=== PATIENT | male | born 1940 | race Caucasian/White ===

== ENCOUNTER 2023-08-11 18:35 | Observation (INO) | payer MEDICARE, BC, SELFPAY ==
[2023-08-11] VITALS (14 sets, daily range): BP systolic 166–199; BP diastolic 63–77; PULSE 95–102; BMI 22.1
--- NOTE | 2023-08-11 15:08 | ED.GENMED ---
History of Present Illness
General
Chief Complaint: Change in Mental Status
Source: patient
Exam Limitations: none
Time Seen by Provider: 08/11/23 14:52
Travel History
Have you had any contact with someone who has COVID-19?: No
Do you have any symptoms of coronavirus? Fever > 100 degrees, chills, cough, shortness of breath, sore throat, loss of taste or smell, muscle aches, or headache?: No
History of Present Illness
History of Present Illness:
83-year-old male with history of liver cancer currently not being treated presents via EMS from home where he lives with his . He was outside [place] and his looked out the window and saw him on his back on the ground. Patient does
not recall what happened. He denies any current chest pain headache shortness of breath. About 1 year ago he had a similar episode where he fell and was taken to [facility]. That time he was anticoagulated. Decision was made at the time
and he is at [facility] to place him on hospice. He has since graduated from hospice as he was gaining weight and his appetite returned. Currently does not receive any treatment for his cancer. He states that recently his appetite has been good.
Past History
Past History
ED Past Medical History: HTN, Other (Type I aortic dissection) and Other (Prior GI bleed, prostate cancer)
ED Past Surgical History: None and Cardiac (Type I aortic dissection repair June 2009, Dr. Valencia)
Social History
Tobacco: Non-smoker
Alcohol: Daily
Drug: None
Personal:
Living: with family
Family History
Family History: Unable to obtain
Phy Exam
Physical Exam
Physical Exam:
General: Cachectic appearing male no acute respiratory distress
HEENT: Normocephalic atraumatic
Heart: Regular rate and rhythm no murmurs
Lungs: Clear to auscultation bilaterally no wheezing
Neurologic exam: Alert and oriented x 3 no facial asymmetry or slurred speech no drift on exam finger-nose intact.
Course
Orders/Labs/Results
Orders:
Orders
08/11/23 14:50
Electrocardiogram (*1) Urgent
Reason for Study: Syncope
EKG- Treatment ONCE
08/11/23 15:05
CT Head W/o Iv Contrast Urgent
Comment:
Reason For Exam: fall
08/11/23 15:06
Ammonia Urgent
Complete Blood Count/With Diff Urgent
Comprehensive Metabolic Panel Urgent
Troponin I Urgent
08/11/23 15:07
Urinalysis Reflex To Culture Urgent
08/11/23 15:19
Orthostatic VS- Treatment ONCE
08/11/23 16:08
0.9% Sodium Chloride 1000 ml [Nss] 1,000 ml IV BOLUS
Abnormal Lab Results
08/11/23
15:06
WBC 10.9 H 10^3/uL
(4.8-10.8)
RBC 2.59 L 10^6/uL
(4.70-6.10)
Hgb 7.3 L g/dL
(13.0-18.0)
Hct 22.0 L %
(39.0-52.0)
RDW 15.4 H %
(11.5-14.5)
Abs Immat Gran (auto) 0.1 H 10^3/uL
(0-0.05)
Absolute Neuts (auto) 8.2 H 10^3/uL
(1.4-6.5)
Absolute Lymphs (auto) 0.7 L 10^3/uL
(1.2-3.4)
Absolute Monos (auto) 1.1 H 10^3/uL
(0.1-0.6)
Immature Gran % 0.6 H %
(0-0.5)
Neutrophils % 75.7 H %
(42.2-75.2)
Lymphocytes % 6.8 L %
(20.5-51.1)
Monocytes % 9.9 H %
(1.7-9.3)
Eosinophils % 6.5 H %
(0-6)
BUN 57 H mg/dl
(9-20)
Creatinine 4.4 H* mg/dL
(0.7-1.3)
Glucose 112 H mg/dl
(70-99)
Alkaline Phosphatase 144 H U/L
(38-126)
08/11/23 15:06
08/11/23 15:06
Vital Signs
Initial and Last Documented VS:
Initial Vital Signs
BP
179/67
08/11/23 14:47
Last Documented Vital Signs
Temp Pulse Resp BP Pulse Ox
98.6 F 54 20 180/68 99
08/11/23 15:00 08/11/23 16:45 08/11/23 16:45 08/11/23 16:00 08/11/23 16:45
MDM/Problems Addressed
Differential Diagnosis Includes:
Fall unclear etiology. Question possible syncope versus mechanical fall versus anemia
CT of the head pending will check labs.
*Critical Care Note
Total Time (30-74mins, 75-104mins- exclusive of procedures): Not Applicable
Update Note
Update Note:
Patient has acute on chronic anemia with hemoglobin 7.3 and acute on chronic kidney disease now with a creatinine of 4.4. Looks dry on exam potentially prerenal. Patient after fall that was unwitnessed and does not recall. Discussed with
emergency room attending. Keep in hospital
ED Attending Note
-
Portions of this chart may have been created with voice recognition software.� Occasional wrong word or��sound alike� substitutions may have occurred due to the inherent limitations of voice recognition software.
Discharge Plan
Departure
Patient Disposition: Admit
Date of Disposition: 08/11/23
Time of Disposition: 17:14
Admit to: Telemetry
Presentation/result/management discussed w/ accepting MD/DO: Hospitalist
Discharge Problem:
ANITHA (acute kidney injury), Anemia
Prescriptions:
No Action
aspirin 81 MG tablet,delayed release (DR/EC)
81 mg PO DAILY
amlodipine 10 MG tablet
10 mg PO QPM
omega 8-ywv-htn-fish oil 1 EACH capsule
1 cap PO DAILY
ascorbic acid (vitamin C) [Vitamin C] 500 MG tablet
1,000 mg PO DAILY
atorvastatin 20 MG tablet
20 mg PO DAILY
Ca-D3-mag tm-dizy-anh-zahra-bor [Calcium 600-D3 Plus (mag-zinc)] 1 EACH tablet
1 ea PO BID
metoprolol succinate 100 MG tablet extended release 24 hr
100 mg PO DAILY
Referrals:
eLwis Fuentes MD [Family Provider] -
Interventions
Interventions:
*Risk Screen - Suicide Last Done: 08/11/23 15:04
*General Assessment Last Done: 08/11/23 15:04
*Neglect/Abuse Screening Last Done: 08/11/23 15:04
*ED COVID-19 Vaccine History Last Done: 08/11/23 15:04
ED- Neurological Assessment Last Done: 08/11/23 15:11
ED- Cardiac Assessment Last Done: 08/11/23 15:11
[2023-08-11 15:23] LABS: % Basophils 0.5 % (0-2); % Eosinophils 6.5 % (0-6); % Immature Granulocytes 0.6 % (0-0.5); % Lymphocytes 6.8 % (20.5-51.1); % Monocytes 9.9 % (1.7-9.3); % Neutrophils 75.7 % (42.2-75.2); Absolute Basophils 0.1 10^3/uL (0-0.2); Absolute Eosinophils 0.7 10^3/uL (0-0.7); Absolute Immature Granulocytes 0.1 10^3/uL (0-0.05); Absolute Lymphocytes 0.7 10^3/uL (1.2-3.4); Absolute Monocytes 1.1 10^3/uL (0.1-0.6); Absolute Neutrophils 8.2 10^3/uL (1.4-6.5); Hemoglobin 7.3 g/dL (13.0-18.0); Mean Corp Hgb Conc. 33.2 g/dL (33.0-37.0); Mean Corpuscular Hgb 28.2 pg (27.0-31.0); Mean Corpuscular Volume 84.9 fL (80.0-94.0); Mean Platelet Volume 9.6 fL (7.4-10.4); Nucleated Red Blood Cells % 0 % (-); Platelet Count 194 10^3/uL (130-400); Red Blood Cell Count 2.59 10^6/uL (4.70-6.10); Red Cell Dist. Width 15.4 % (11.5-14.5); White Blood Cell Count 10.9 10^3/uL (4.8-10.8)
[2023-08-11 15:36] LABS: ALT (SGPT) 20 U/L (0-50); AST (SGOT) 42 U/L (17-59); Albumin 4.2 g/dl (3.5-5.0); Alkaline Phosphatase 144 U/L (38-126); Blood Urea Nitrogen 57 mg/dl (9-20); Calcium 9.2 mg/dl (8.4-10.2); Carbon Dioxide 23 mmol/L (22-30); Chloride 101 mmol/L (98-107); Estimated Creatinine Clearance 12 ml/min; Glucose 112 mg/dl (70-99); Potassium 4.8 mmol/L (3.5-5.1); Sodium 137 mmol/L (135-145); Total Bilirubin 0.7 mg/dl (0.2-1.3); Total Protein 7.3 g/dl (6.3-8.2); eGFR 12.78
[2023-08-11] MEDS: NSS 1000 IV ×2 (16:11→20:23)
--- NOTE | 2023-08-11 17:30 | HPS.HSE ---
Addendum entered and electronically signed by Bin Hernandez MD 08/11/23 18:36:
I saw and examined the patient.
The [employer] or PA's note was reviewed and I agree with the note.
Comment:
Patient 83 years old male history of rectal carcinoma with liver mets, prostate cancer, AAA, hypertension, hyperlipidemia, CKD, presented to the hospital syncope event. Patient does not recall all details but he tells me he had lunch, he went to
chicken picker the leaves at his backyard and next thing he remembers he was on the grass. He denies chest pain or shortness of breath. He denies seizure-like activity. He denies fevers or chills. He has been in hospice last year then transferred to
palliative care this year. He does state that he does not drink much. Labs remarkable for WBC 10.9, hemoglobin 7.3, creatinine 4.4. He was referred to hospitalist for further evaluation.
Physical exam:
General: Acutely ill
HEENT: Port in right chest no signs of infection. Normocephalic, Atraumatic and Dry Mucous Membranes
Respiratory: Clear to Auscultation; Negative Wheezes, Rales or Rhonchi
Cardiac: Regular Rhythm and S1/S2
GI: Soft, Nontender and Nondistended
Musculoskeletal: No Clubbing, No Cyanosis and No Edema
Neuro: Awake, Alert and Oriented, cognitive deficits present.
Psych: Calm
A/P:
Syncope--> cardiac monitoring, gentle IV fluids, check orthostasis, monitor hemoglobin, transfuse with blood if hemoglobin less than 7, PT OT eval, x-ray of his right shoulder. Will give further recommendations based on his clinical course.
Original Note:
Family Physician
-
Family Physician: Lewis Fuentes
Chief Complaint
-
syncope
History of Present Illness
83-year-old male who was reportedly outside raking leaves today when his saw him lying on his back on the ground. The patient does not recall falling or how he wound up on the ground. Reportedly EMS said that he had taken his shoes off and
they were sitting perfectly lined up next to him when they arrived. The patient does not recall any prodrome of the events. He states he does have poor memory recall. He does recall having a syncope episode July 2022 was seen at [facility] and
at that time did decided to go on hospice and stop chemotherapy for his stage IIIb rectal CA with mets to liver. He denies headache, chest pain, palpitations, shortness of breath, cough, abdominal pain, nausea, vomiting, diarrhea, black stools,
hematuria. He has past medical history of stage IIIb rectal carcinoma with mets to liver prior chemotherapy, HTN, CKD, chronic anemia Hx GI bleed, GERD prostate cancer, type I aortic dissection with repair June 2009
Medical History
Past Medical History
Past Medical History: Reports Other
Additional Past Medical History:
Chronic memory impairment
Stage IIIb rectal carcinoma with mets to liver prior chemotherapy
HTN,
CKD 3B�4,
chronic anemia
Hx GI bleed
prostate cancer
type I aortic dissection with repair June 2009
Past Surgical History: Reports Other
Additional Past Surgical History:
Port right upper chest wall
type I aortic dissection with repair June 2009
Social History
Tobacco: Former Smoker (quit 1964)
Alcohol: None
Drug: None
Personal:
Living: With Family
Employment: Retired
Family History
Family History: Not pertinent
Allergies / Home Medications
Allergies reflects when Allergies were last updated in [facility].
Home Medications with original date entered in [facility]
Allergy/Medication List:
Allergies
Allergy/AdvReac Type Severity Reaction Status Date / Time
No Known Drug Allergies Allergy Unknown Verified 08/11/23 14:51
Home Medications
omega 9-zvs-jrx-fish oil 250 mg-500 mg-1,000 mg capsule 1 cap PO DAILY High cholesterol 09/21/15
ascorbic acid (vitamin C) 500 mg tablet (Vitamin C) 500 mg PO DAILY Supplement 05/31/20
metoprolol succinate 100 mg tablet,extended release 24 hr 100 mg PO DAILY Heart disease/condition 07/05/21
acetaminophen 500 mg tablet 1,000 mg PO DAILY 08/11/23
amlodipine 2.5 mg tablet 2.5 mg PO DAILY 08/11/23
calcium carbonate 333 mg-magnesium oxide 133 mg-zinc sulf 5 mg tablet 1 tab PO DAILY 08/11/23
omeprazole 20 mg capsule,delayed release 20 mg PO DAILY 08/11/23
Review of Systems
-
History Source: Patient and Ambulance Crew
A 12 point ROS was completed and negative except as noted: Yes
Constitutional: Denies Fever or Chills
EENT: Reports Other (Syncope); Denies Sore Throat or Runny Nose
Respiratory: Denies Cough or Trouble Breathing
Cardiac: Reports Syncope; Denies Chest Pain, Diaphoresis or Palpitations
Abdomen/GI: Denies Abdominal Pain, Nausea, Vomiting, Diarrhea, Constipated, Bloody Stools or Black Stools
: Denies Dysuria, Frequency, Flank Pain, Incontinence, Difficulty Voiding, Urgency or Bleeding
Musculoskeletal: Reports Joint Pain (Right shoulder, right humerus) and Other (Chronic limited range of motion bilateral shoulders to elbow level since chemo); Denies Joint Swelling or Edema
Skin: Denies Itching or Rash
Neurological: Denies Dizzy, Headache or Weakness
Endocrine: Reports No Symptoms
Hematologic/Lymphatic: Reports No Symptoms
Psych: Reports Calm
Physical Exam
Vital Signs
Vital Signs
Temp Pulse Resp BP Pulse Ox
98.6 F 54 20 180/68 99
08/11/23 15:00 08/11/23 16:45 08/11/23 16:45 08/11/23 16:00 08/11/23 16:45
Physical Exam
General: No Pain, Fever or Chills
HEENT: NormoCephalic, Anicteric, Moist mucous membranes, PERRLA, [place] Conjunctivae, No Ptosis and Neck Nontender
Respiratory: Clear; No Wheezes, Rales or Rhonchi
Cardiac: S1/S2 and Regular Rhythm
Breast: Deferred by me
GI: Soft, Non Tender, Non Distended, Normal Bowel Sounds and No Hepatosplenomegaly
Rectal: Deferred by Provider
Genito-urinary: Deferred by me
Musculoskeletal: No Clubbing, No Cyanosis, No Edema and Other (Chronic limited range of motion bilateral shoulders to elbow level since chemo)
Skin: Warm and Dry
Neuro: Awake, Alert, Oriented (To name, place, but not recent events today), No Sensory Deficits and Other (Chronic limited range of motion bilateral shoulders to elbow level since chemo); No Slurred Speech, Facial Droop or Tremors
Psych: Calm
Laboratory Results
-
08/11/23 15:06
08/11/23 15:06
Laboratory Results
Total Bilirubin 0.7 mg/dl (0.2-1.3) 08/11/23 15:06
AST 42 U/L (17-59) 08/11/23 15:06
ALT 20 U/L (0-50) 08/11/23 15:06
Alkaline Phosphatase 144 U/L (38-126) H 08/11/23 15:06
Troponin I 0.020 ng/ml 08/11/23 15:06
Impression/Plan
-
Impression/plan:
OBS telemetry
#Syncope unclear likely multifactorial, dehydration, anemia
-Check orthostatics
-IV NSS
-Troponin 0.020 will trend
- pt/Ot / case mgmt consult
EKG sinus rhythm with first-degree AV block 61 bpm, QTc [address] changes anterior leads T wave abnormality inferiorly
Ct HEad: No acute intracranial abnormalities.
Findings again seen compatible with diffuse cortical atrophy with mild nonspecific white matter changes as described above.
#Unwitnessed fall, right shoulder pain
-X-ray shoulder and humerus
tylenol prn pain
#ANITHA on CKD 3B�4
Creat 4.4 > 3.1 on 07/10/2022
-IV NSS, follow BMP
#Acute on chronic anemia
Hgb 7.3 was 9 in June and 8.1 on 07/10/2022
-Type and screen, obtain blood consent
-Iron panel, B12, folate
#Stage IIIb rectal colon cancer with hepatic metastases
-History of chemotherapy induced diarrhea 2021
stopped chemo jul 2022 went on hospice since then
#GERD
#Hx GI bleed
-Continue omeprazole 20 mg daily
#HTN�benign
180/
-Check orthostatic vitals
-Continue metoprolol 100 mg daily, amlodipine 2.5 mg daily
#Hx prostate cancer
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
DVT prophylaxis
scd's
DNR
[2023-08-11 18:22] LABS: Urine Albumin 2+ (Neg - Trace); Urine Bilirubin Negative (Negative); Urine Character Clear (Clear); Urine Color Yellow; Urine Glucose Negative (Negative); Urine Ketone Negative (Negative); Urine Leukocyte Negative (Negative); Urine Nitrite Negative (Negative); Urine Occult Blood 3+ (Negative); Urine Urobilinogen Negative (Neg - 1+)
[2023-08-11 18:25] LABS: Total Iron Binding Capacity 280 ug/dl (261-462)
[2023-08-11 18:33] LABS: Ammonia < 9 umol/L (9-30)
[2023-08-11 18:36] LABS: Urine Bacteria Few (Negative); Urine White Cell 0-2 /HPF (0-5)
[2023-08-11 19:22] LABS: Vitamin B12 299 pg/ml (239-931)
[2023-08-11 21:00] LABS: Troponin I 0.049 ng/ml
[2023-08-12] VITALS (28 sets, daily range): BP systolic 169–217; BP diastolic 55–82; PULSE 58
[2023-08-12 03:49] LABS: Troponin I 0.052 ng/ml
--- NOTE | 2023-08-12 04:26 | W.PN.UPDATE ---
Update Note
Progress Note Update
Patient noted with steadily increasing troponin but is without CP.
[2023-08-12] MEDS: NSS 1000 IV ×2 (06:25→14:27)
[2023-08-12 06:31] LABS: % Basophils 0.6 % (0-2); % Eosinophils 5.4 % (0-6); % Immature Granulocytes 0.3 % (0-0.5); % Monocytes 10.1 % (1.7-9.3); % Neutrophils 69.6 % (42.2-75.2); Absolute Eosinophils 0.4 10^3/uL (0-0.7); Absolute Monocytes 0.7 10^3/uL (0.1-0.6); Absolute Neutrophils 4.9 10^3/uL (1.4-6.5); Mean Corp Hgb Conc. 32.5 g/dL (33.0-37.0); Mean Corpuscular Hgb 27.9 pg (27.0-31.0); Mean Corpuscular Volume 85.8 fL (80.0-94.0); Mean Platelet Volume 10.1 fL (7.4-10.4); Nucleated Red Blood Cells % 0 % (-); Platelet Count 153 10^3/uL (130-400); Red Cell Dist. Width 15.1 % (11.5-14.5); White Blood Cell Count 7.1 10^3/uL (4.8-10.8)
[2023-08-12 06:46] LABS: Blood Urea Nitrogen 52 mg/dl (9-20); Carbon Dioxide 22 mmol/L (22-30); Chloride 105 mmol/L (98-107); Estimated Creatinine Clearance 14 ml/min; Glucose 88 mg/dl (70-99); HDL Cholesterol 44 mg/dl; LDL Cholesterol, Calculated 80 mg/dl; Potassium 4.6 mmol/L (3.5-5.1); Sodium 138 mmol/L (135-145); Total Cholesterol 142 mg/dl (50-199); Triglyceride 90 mg/dl (10-149); Very Low Density Lipoprotein 18 mg/dl (0-30); eGFR 14.77
[2023-08-12 07:08] LABS: Hematocrit 20.6 % (39.0-52.0); Hemoglobin 6.7 g/dL (13.0-18.0)
--- NOTE | 2023-08-12 08:00 | W.PN.HOSP.TC ---
Today's Communication/Plan
-
Plan for blood transfusion. Plan for echocardiogram. PT OT
Assessment / Plan
Assessment / Plan
Physical exam:
General: Chronically ill and No Apparent Distress
HEENT: Normocephalic, Atraumatic and Moist Mucous Membranes
Respiratory: Clear to Auscultation; Negative Wheezes, Rales or Rhonchi
Cardiac: Regular Rhythm and S1/S2
GI: Soft, Nontender and Nondistended
Musculoskeletal: No Clubbing, No Cyanosis and No Edema
Neuro: Awake, Alert and Oriented, no neuro-deficits, cognitive deficits present
Psych: Calm
A/P:
Syncope:
-Continue manager delivery
-Cardiology consult appreciated
-Plan for echocardiogram
-Check orthostatic
-PT OT eval
Worsening anemia:
-Hb 6.7 from 7.3 yesterday
-Likely anemia of chronic disease but proceed to do anemia workup
-Plan for transfusion of 1 unit of blood today (patient consented).
-Recheck hemoglobin in a.m.
-Might benefit from Procrit as outpatient but needs weigh in pro's con's
Elevated troponin:
-Elevated troponin likely due to non-ischemic myocardial injury
-Cardio on board
Hypertensive urgency:
-Given hydralazine 10 mg IV x 1
-Increase Norvasc from 2.5 to 5 mg p.o. daily
-Decrease Toprol-XL from 100 to 50 mg p.o. daily to avoid AV block or significant bradycardia.
ANITHA on CKD:
-IV fluids and blood transfusion
-Cr improving with hydration--> Cr 4.4-->3.9
-Avoid nephrotoxic
-Monitor renal function closely
-Monitor urine output
-Creatinine today
Paroxysmal atrial fibrillation:
-Not on anticoagulant due to past aortic dissection repair and risk of falls
-Continue rate control, beta-blockers
-Continue cardiac monitoring
Rectal carcinoma with metastasis:
-History of sigmoidectomy in the past and chemotherapy
-He has been on hospice and then transition to palliative care
Other medical problems:
Prostate cancer s/p radiation
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
GI bleeding in the past
Hyperlipidemia
GERD
DVT prophylaxis:
-SCD
Code status:
-DNR
Anticipated Discharge: 24 - 48 hours
Subjective/Interval History
-
Date of Service: August 12, 2023
Patient denies any chest pain or shortness of breath today. Denies any melena or hematemesis.
Objective Data
-
Labs:
Laboratory Results
08/12/23 08/12/23
05:45 07:33
WBC 7.1
Hgb 6.7 L*
Hct 20.6 L*
Plt Count 153 D
Sodium 138
Potassium 4.6
Chloride 105
Carbon Dioxide 22
BUN 52 H
Creatinine 3.9 H
Glucose 88
Calcium 9.0
Total Bilirubin Pending
AST Pending
ALT Pending
Alkaline Phosphatase Pending
Vital Signs:
Vital Signs
Temp Pulse Resp BP Pulse Ox
98.6 F 45 20 177/66 97
08/11/23 15:00 08/12/23 05:15 08/12/23 05:15 08/12/23 05:01 08/12/23 05:15
I&O
08/11/23 08/12/23 08/13/23
06:59 06:59 06:59
Intake Total 240 / 240
Output Total 750 / 750
Balance -510 / -510
[2023-08-12 09:04] LABS: ALT (SGPT) 17 U/L (0-50); AST (SGOT) 42 U/L (17-59); Albumin 3.7 g/dl (3.5-5.0); Alkaline Phosphatase 142 U/L (38-126); Direct Bilirubin 0.1 mg/dl (0.0-0.4); Iron 46 ug/dl (49-181); Total Bilirubin 1.1 mg/dl (0.2-1.3); Total Protein 6.6 g/dl (6.3-8.2)
[2023-08-12 09:15] LABS: Percent Saturation 17 % (20-50); Total Iron Binding Capacity 258 ug/dl (261-462)
--- NOTE | 2023-08-12 10:00 | PTCARENOTE ---
Pt's HR SR 49-mid 50's. Notified Dr. Hernandez, clarified if okay to give Metoprolol Succinate ER 100mg. Per Dr. Hernandez, okay to give at this time.
[2023-08-12] MEDS: PROTONIX 40 MG PO (10:08)
[2023-08-12] MEDS: NORVASC 2.5 MG PO (10:08)
[2023-08-12] MEDS: OSCAL 500 + D 500 MG PO (10:08)
[2023-08-12] MEDS: VITAMIN C 500 MG PO (10:11)
[2023-08-12 10:20] LABS: Folate 14.7 ng/ml (2.76-20); Vitamin B12 286 pg/ml (239-931)
[2023-08-12] MEDS: TOPROL XL 100 MG PO (10:24)
--- NOTE | 2023-08-12 10:42 | CON.CAR ---
Addendum entered and electronically signed by Justin Mcarthur DO 08/12/23 16:31:
I saw and examined the patient.
The Shift Superintendent's note was reviewed and I agree with the note.
Comment:
Plan:
HPI: Patient came to [facility] yesterday after an episode of syncope in his yard and cardiology has been consulted for syncope and elevated Troponin. Patient previously followed with Dr. Nieto, but has not seen him in the office since 2015. Since then
patient was diagnosed with rectal carcinoma and had sigmoidectomy and chemotherapy. Then was doing well until a fall at home that was managed as trauma at [facility] approximately 06/2022. Patient says at that time he stood up from the toilet at home and
then passed out and was taken to [facility]. He says at the end of that admission he was initiated on hospice, but recently outlived hospice and was transitioning to palliative care that is supposed to start this week. Patient is using [facility]. Patient says that he was in his usual state of health yesterday and after eating lunch he went to his yard to move leaves, he says that involved bending down and carrying leaves. He says that he was raking leaves and the next thing he
remembers is being brought to the hospital. Patient denies chest pain or SOB. He is HTN in the ER and says that when the nurse was coming from hospice that his BP was generally higher, but he felt well so there were no changes to amlodipine 2.5 mg
daily and Toprol XL 100 mg daily regimen. Now that he is transitioning to Palliative he wants to start seeing Dr. Fuentes in the office again, but does not have an appt yet. He is anemic with Hgb 6.7 this morning. Patient reports a h/o anemia,
presumably related to previous chemotherapy treatment managed by [facility]. He used to take warfarin OAC, but this was stopped due to falls and GIB in 2019. Afib was first seen in 2010 and then he was in SR for years on Multaq and then
Multaq stopped when he could not be anticoagulated, but remained in SR throughout his sigmoidectomy and cancer treatment in .
Plan:
Syncope which may be multifactorial
Monitor on tele for bradycardia or heart block. Toprol reduced for bradycardia.
Check echo to reeval EF
Orthostatic vitals negative. With HTN, increas Norvasc for better bp control.
Transfuse and monitor H/H.
Cont med tx of nonMI troponin. Pt would not want ischemic work up in any case he has stated.
Remains sinus with hx of distant PAFib at time of aortic dissection repair in 2010 and not an anticoagulation candidate in the past due to falls.
Acute on chronic RF. Avoid nephrotoxic agents.
Original Note:
Consultation
Consultation Request
Date/Time Consultation Requested: 08/12/23 at 0802
Date/Time Consultation Performed: 08/12/23 at 0900
Requesting Provider: Dr. Hernandez
Performing Provider: Dr. Mcarthur
Reason for Consultation: Elevated Troponin, syncope
Medical History
-
History of Present Illness:
Patient came to [facility] yesterday after an episode of syncope in his yard and cardiology has been consulted for syncope and elevated Troponin. Patient previously followed with Dr. Nieto, but has not seen him in the office since 2015. Since then
patient was diagnosed with rectal carcinoma and had sigmoidectomy and chemotherapy. Then was doing well until a fall at home that was managed as trauma at [facility] approximately 06/2022. Patient says at that time he stood up from the toilet at home and
then passed out and was taken to [facility]. He says at the end of that admission he was initiated on hospice, but recently outlived hospice and was transitioning to palliative care that is supposed to start this week. Patient is using [facility]. Patient says that he was in his usual state of health yesterday and after eating lunch he went to his yard to move leaves, he says that involved bending down and carrying leaves. He says that he was raking leaves and the next thing he
remembers is being brought to the hospital. Patient denies chest pain or SOB. He is HTN in the ER and says that when the nurse was coming from hospice that his BP was generally higher, but he felt well so there were no changes to amlodipine 2.5 mg
daily and Toprol XL 100 mg daily regimen. Now that he is transitioning to Palliative he wants to start seeing Dr. Fuentes in the office again, but does not have an appt yet. He is anemic with Hgb 6.7 this morning. Patient reports a h/o anemia,
presumably related to previous chemotherapy treatment managed by [facility]. He used to take warfarin OAC, but this was stopped due to falls and GIB in 2019. Afib was first seen in 2010 and then he was in SR for years on Multaq and then
Multaq stopped when he could not be anticoagulated, but remained in SR throughout his sigmoidectomy and cancer treatment in .
PMH:
Chronic anemia
h/o admission for fall and trauma to [facility] 06/2022
initiated on Hospice after that admission and then recently transitioned to Palliative
CKD 4
Prostate CA 2009
radiation
Rectal carcinoma 3b, 05/2020
s/p elective robotic sigmoidectomy 06/08/20
declined systemic therapy, then found to have liver lesions c/w metastatic lesions, treated with FOLFOX and Vectibix 02/2021
History of extensive type A aortic dissection status post repair 06/2010
History of GI bleeding
Paroxysmal atrial fibrillation
Not chronically anticoagulated due to h/o falls
Hypertension
Hyperlipidemia
History of right retinal artery occlusion in 2015
Remote former smoker
Past Medical History
Past Medical History: Other (in HPI)
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
Social History
Tobacco: Former Smoker
Alcohol: Daily
Drug: None
Personal:
Living: With Family
Family History
Family History: CAD and Other (renal failure)
Allergies / Home Medications
Allergy/AdvReac Type Severity Reaction Status Date / Time
No Known Drug Allergies Allergy Unknown Verified 08/11/23 14:51
Medication Instructions Recorded Confirmed Type
omega 2-awf-qkx-fish oil 250 1 cap PO DAILY High cholesterol 09/21/15 08/11/23 History
mg-500 mg-1,000 mg capsule
ascorbic acid (vitamin C) 500 mg 500 mg PO DAILY Supplement 05/31/20 08/11/23 History
tablet (Vitamin C)
metoprolol succinate 100 mg 100 mg PO DAILY Heart 07/05/21 08/11/23 History
tablet,extended release 24 hr disease/condition
acetaminophen 500 mg tablet 1,000 mg PO DAILY 08/11/23 08/11/23 History
amlodipine 2.5 mg tablet 2.5 mg PO DAILY 08/11/23 08/11/23 History
calcium carbonate 333 mg-magnesium 1 tab PO DAILY 08/11/23 08/11/23 History
oxide 133 mg-zinc sulf 5 mg tablet
omeprazole 20 mg capsule,delayed 20 mg PO DAILY 08/11/23 08/11/23 History
release
Review of Systems
-
History Source: Patient
All other systems: Negative unless noted
Physical Exam
Vital Signs
Temp Pulse Resp BP Pulse Ox
98 F 58 14 208/71 100
08/12/23 09:00 08/12/23 10:24 08/12/23 10:08 08/12/23 10:24 08/12/23 10:08
GEN: Frail appearing. NAD. AAOx3
HEENT: EOMI, MMM
LUNGS: CTA B/L, no wheezes/rales
CV: Reg, S1/S2, 1/6 syst LSB
ABD: soft, BS+, NT, ND
EXT: No clubbing, cyanosis, lesions or edema B/L
NEURO: Gross non-focal
SKIN: Warm, dry and pink. No rash
Lab Results
08/12/23 05:45
08/12/23 05:45
Troponin I 0.052 ng/ml H* 08/12/23 03:07
Impression / Plan
-
PCP:
Primary Luncheonette Manager: Dr. Nieto
Impression:
Syncope 08/11/23
Acute on chronic anemia
h/o admission for fall and trauma to [facility] 06/2022
initiated on Hospice after that admission and then recently transitioned to Palliative
ANITHA on CKD 4
Prostate CA 2009
radiation
Rectal carcinoma 3b, 05/2020
s/p elective robotic sigmoidectomy 06/08/20
declined systemic therapy, then found to have liver lesions c/w metastatic lesions, treated with FOLFOX and Vectibix 02/2021
History of extensive type A aortic dissection status post repair 06/2010
History of GI bleeding
Paroxysmal atrial fibrillation
Not chronically anticoagulated due to h/o falls
Hypertension
Hyperlipidemia
History of right retinal artery occlusion in 2015
CKD, stage 2
Remote former smoker
ECHO 2014: EF 55%, mild MR, mild TR
Echo 06/01/20: EF 60-65%, mild MR/AR, mild-mod LVH
Plan:
-Patient came to [facility] yesterday after an episode of syncope in his yard and cardiology has been consulted for syncope and elevated Troponin. Patient previously followed with Dr. Nieto, but has not seen him in the office since 2016. Since then
patient was diagnosed with rectal carcinoma and had sigmoidectomy and chemotherapy. Then was doing well until a fall at home that was managed as trauma at [facility] approximately 06/2022. Patient says at that time he stood up from the toilet at home and
then passed out and was taken to [facility]. He says at the end of that admission he was initiated on hospice, but recently outlived hospice and was transitioning to palliative care that is supposed to start this week. Patient is using [facility]. Patient says that he was in his usual state of health yesterday and after eating lunch he went to his yard to move leaves, he says that involved bending down and carrying leaves. He says that he was raking leaves and the next thing he
remembers is being brought to the hospital. Patient denies chest pain or SOB. He is HTN in the ER and says that when the nurse was coming from hospice that his BP was generally higher, but he felt well so there were no changes to amlodipine 2.5 mg
daily and Toprol XL 100 mg daily regimen. Now that he is transitioning to Palliative he wants to start seeing Dr. Fuentes in the office again, but does not have an appt yet. He is anemic with Hgb 6.7 this morning. Patient reports a h/o anemia,
presumably related to previous chemotherapy treatment managed by [facility]. He used to take warfarin OAC, but this was stopped due to falls and GIB in 2019. Afib was first seen in 2010 and then he was in SR for years on Multaq and then
Multaq stopped when he could not be anticoagulated, but remained in SR throughout his sigmoidectomy and cancer treatment in .
-Fall at home was unwitnessed and he has multiple problems and lab abnormalities. Syncope occurred while bending down and moving a pile of leaves. He has a h/o syncope after standing up from toilet in 06/2022. He is also anemic and HRs have been low
at times without evidence of heart block. His Troponin is trending up as well. Talked with patient about causes of syncope and there is a limit to what he would want in terms of a work-up. He does not want any procedures, but would be willing to
have an echo and make medicine changes if needed.
-Check echo
-Patient is SR with HRs in the 40s-60s. ECG reviewed by me without heart block. He takes Toprol XL 100 mg daily as an outpatient, will reduce to 50 mg daily.
-Increase amlodipine to 5 mg daily.
-Patient is not orthostatic by VS in ER supine BP 171/63 HR 95, sitting BP 175/73 HR 102 and supine BP 199/68 HR 101.
-Patient reports 1 unit of PRBCs is being ordered. He reports that he is now on palliative care and would be willing to have transfusions if needed.
-Troponin was 0.02 initially, but has trended up to 0.052. No ischemic changes on ECG and he denies chest pain. He does not want an ischemic evaluation, specifically does not want stress test or cath which is reasonable. Will manage as a nonischemic
myocardial injury Troponin elevation due to anemia. Trend Troponin to peak.
-ANITHA on CKD, although no labs in the last year and only recently transitioning from hospice to palliative care. Again, he would not want any invasive testing or procedures, but would be agreeable to medications if offered. He last saw nephrology in
2014, perhaps it is best for him to see his PCP and then decide from there if it is appropriate to restart with nephrology.
-Patient with h/o paroxysmal Afib in 2010 at the time of aortic dissection repair, but no documented recurrence. He is in SR. He is not a candidate for OAC due to falls.
--- NOTE | 2023-08-12 12:30 | CM ---
CM met with patient in room. CHRISTOPHER letter given. Patient lives independently with in a two story home. Patient is not currently on services with an VN. Patient was recently discharged from hospice in June 2023 and transitioned to Palliative
Care. Patient does not have a history of SNF. Patient is active with his PCP Dr. Fuentes. Patient uses [facility] in [place].
CM discussed home care options. Patient stated that he feels he does not need home care at this time. Patient endorsed history of multiple falls in the home. Patient was not treated for those falls as he was on hospice. Patient doesn't see the
benefit of home PT for safety. Patient will consider home care if PT makes that recommendation.
[2023-08-12] MEDS: APRESOLINE 10 MG IV ×2 (12:55→18:48)
[2023-08-12 13:08] LABS: Troponin I 0.039 ng/ml
--- NOTE | 2023-08-12 17:25 | PTCARENOTE ---
pt arrived onto 3w unit from the ed in a wheel chair, r.a, tele, and with an accessed port. Pt was ambulatory from wheelchair to standing scale, then to bed. call tiwari is in reach 3w Rn and tech will continue to monitor.
[2023-08-13 02:46] VITALS: BP 192/82
[2023-08-13] MEDS: APRESOLINE 10 MG IV ×2 (02:58→14:37)
[2023-08-13] MEDS: FLUSH (NSS) 2 FLUSH IV (02:59)
--- NOTE | 2023-08-13 03:02 | PTCARENOTE ---
Blood pressure elevated, MAST MAKER made aware, new order provided, see MAR. Will recheck blood pressure.
[2023-08-13 03:50] VITALS: BP 166/73
[2023-08-13 06:06] LABS: Hematocrit 26.2 % (39.0-52.0); Mean Corp Hgb Conc. 33.2 g/dL (33.0-37.0); Mean Corpuscular Hgb 28.4 pg (27.0-31.0); Mean Corpuscular Volume 85.6 fL (80.0-94.0); Mean Platelet Volume 10.4 fL (7.4-10.4); Platelet Count 223 10^3/uL (130-400); Red Blood Cell Count 3.06 10^6/uL (4.70-6.10); Red Cell Dist. Width 15.2 % (11.5-14.5)
[2023-08-13 06:23] LABS: Blood Urea Nitrogen 46 mg/dl (9-20); Carbon Dioxide 18 mmol/L (22-30); Chloride 107 mmol/L (98-107); Estimated Creatinine Clearance 14 ml/min; Glucose 82 mg/dl (70-99); Potassium 4.5 mmol/L (3.5-5.1); Sodium 135 mmol/L (135-145); eGFR 14.77
[2023-08-13 06:25] LABS: Hemoglobin 8.7 g/dL (13.0-18.0)
[2023-08-13 07:00] VITALS: BP 201/80
[2023-08-13] MEDS: NORVASC 5 MG PO ×2 (09:20→14:37)
[2023-08-13] MEDS: PROTONIX 40 MG PO (09:20)
[2023-08-13] MEDS: TOPROL XL 50 MG PO (09:20)
[2023-08-13] MEDS: OSCAL 500 + D 500 MG PO (09:20)
[2023-08-13] MEDS: VITAMIN C 500 MG PO (09:21)
--- NOTE | 2023-08-13 09:46 | W.PN.CARDCBS ---
Today's Communication / Plan
-
We will sign off, please recall as needed
Patient not interested in scheduling outpatient follow up with our office at this time
Would discharge on reduced Toprol dose of 50mg daily
Increase amlodipine to 5mg daily
Impression / Plan
-
PCP:
Primary Airfield Manager: Dr. Nieto
Impression:
Syncope 08/11/23
Acute on chronic anemia
h/o admission for fall and trauma to [facility] 06/2022
initiated on Hospice after that admission and then recently transitioned to Palliative
ANITHA on CKD 4
Prostate CA 2009
radiation
Rectal carcinoma 3b, 05/2020
s/p elective robotic sigmoidectomy 06/08/20
declined systemic therapy, then found to have liver lesions c/w metastatic lesions, treated with FOLFOX and Vectibix 02/2021
History of extensive type A aortic dissection status post repair 06/2010
History of GI bleeding
Paroxysmal atrial fibrillation
Not chronically anticoagulated due to h/o falls
Hypertension
Hyperlipidemia
History of right retinal artery occlusion in 2015
CKD, stage 2
Remote former smoker
ECHO 2014: EF 55%, mild MR, mild TR
Echo 06/01/20: EF 60-65%, mild MR/AR, mild-mod LVH
Patient came to [facility] after an episode of syncope in his yard and cardiology has been consulted for syncope and elevated Troponin. Patient previously followed with Dr. Nieto, but has not seen him in the office since 2016. Since then patient was
diagnosed with rectal carcinoma and had sigmoidectomy and chemotherapy. Then was doing well until a fall at home that was managed as trauma at [facility] approximately 06/2022. Patient says at that time he stood up from the toilet at home and then passed
out and was taken to [facility]. He says at the end of that admission he was initiated on hospice, but recently outlived hospice and was transitioning to palliative care that is supposed to start this week. Patient is using [facility].
Patient says that he was in his usual state of health yesterday and after eating lunch he went to his yard to move leaves, he says that involved bending down and carrying leaves. He says that he was raking leaves and the next thing he remembers is
being brought to the hospital. Patient denies chest pain or SOB. He is HTN in the ER and says that when the nurse was coming from hospice that his BP was generally higher, but he felt well so there were no changes to amlodipine 2.5 mg daily and
Toprol XL 100 mg daily regimen. Now that he is transitioning to Palliative he wants to start seeing Dr. Fuentes in the office again, but does not have an appt yet. He is anemic with Hgb 6.7 this morning. Patient reports a h/o anemia, presumably
related to previous chemotherapy treatment managed by [facility]. He used to take warfarin OAC, but this was stopped due to falls and GIB in 2019. Afib was first seen in 2010 and then he was in SR for years on Multaq and then Multaq stopped
when he could not be anticoagulated, but remained in SR throughout his sigmoidectomy and cancer treatment in .
Plan:
-Fall at home was unwitnessed and he has multiple problems and lab abnormalities. Syncope occurred while bending down and moving a pile of leaves. He has a h/o syncope after standing up from toilet in 06/2022. He is also anemic and HRs have been low
at times without evidence of heart block.
-Discussed with patient, he was previously on hospice and would want conservative therapy and limited work up
-On tele patient is SR with HRs in the 40s-60s. Previously taking Toprol XL 100 mg daily as an outpatient, reduced to 50 mg daily.
-Echo here with preserved function and no significant valvular pathology
-Given elevate BP amlodipine increased to 5 mg daily
-Troponin peaked at 0.052. No ischemic changes on ECG, no chest pain and TTE without SWMA
-Patient is not interested in ischemic evaluation
-Suspect nonischemic myocardial injury troponin elevation due to anemia and CKD
-Patient with h/o paroxysmal Afib in 2010 at the time of aortic dissection repair, but no documented recurrence. He is in SR. Would hold off on OAC due to falls and anemia.
We will sign off, please recall as needed
Patient not interested in scheduling outpatient follow up with our office at this time
Progress Note - Airfield Manager
Subjective
Date of Service: August 13, 2023
NAOE. Resting comfortably this AM. No CP or SOB. Anxious for discharge home.
Objective
Labs:
08/13/23 04:51
08/13/23 04:51
Labs
Hgb 8.7 g/dL (13.0-18.0) L D 08/13/23 04:51
Hct 26.2 % (39.0-52.0) L 08/13/23 04:51
Plt Count 223 10^3/uL (130-400) D 08/13/23 04:51
Sodium 135 mmol/L (135-145) 08/13/23 04:51
Potassium 4.5 mmol/L (3.5-5.1) 08/13/23 04:51
BUN 46 mg/dl (9-20) H 08/13/23 04:51
Creatinine 3.9 mg/dL (0.7-1.3) H 08/13/23 04:51
Glucose 82 mg/dl (70-99) 08/13/23 04:51
Troponins
08/11/23 08/11/23 08/12/23
15:06 20:25 03:07
Troponin I 0.020 0.049 H* D 0.052 H*
08/12/23
12:35
Troponin I 0.039 H*
Vital Signs and I&O:
Vital Signs
Temp Pulse Resp BP Pulse Ox
97.7 F 50 18 201/80 100
08/13/23 07:00 08/13/23 07:00 08/13/23 07:00 08/13/23 07:00 08/13/23 07:00
Vital Signs
Temp Pulse Resp BP Pulse Ox
97.7 F 50 18 201/80 100
08/13/23 07:00 08/13/23 07:00 08/13/23 07:00 08/13/23 07:00 08/13/23 07:00
Intake & Output
08/11/23 08/12/23 08/13/23 08/14/23
06:59 06:59 06:59 06:59
Intake Total 240 / 240 250 / 490 240 / 240
Output Total 750 / 750 1200 / 1200
Balance -510 / -510 250 / -710 -960 / -960
Physical Exam
Physical Exam
Gen: NAD, AAOx3
HEENT: NC/AT, sclera anicteric
Neck: No JVD
CV: RRR, NL s1/s2
Lungs: CTAB
Abd: S/ND
Ext: No LE edema
Skin: Warm, dry
Neuro: Non-focal
--- NOTE | 2023-08-13 10:59 | W.PN.HOSP.TC ---
Addendum entered and electronically signed by Alfredito Rehman MD 08/13/23 15:03:
Patient insisting on going home. Recommend multiple times if need to adjust his blood pressure medication as with severely elevated blood pressure. Patient states he will take his medications at home but wants to leave AGAINST MEDICAL ADVICE.
Patient stating he wants to go home. Patient is awake alert and oriented. Patient is able to make his own decision. Patient was explained the risk of leaving AGAINST MEDICAL ADVICE which include worsening of blood pressure, headache, stroke,
cardiac arrest and . Patient states he will follow-up with his primary doctor and take his blood pressure medications. Signed the AMA form. Discussed with RN. Awaiting transportation.
Original Note:
Today's Communication/Plan
-
Monitor BP
may need meds adjustment
Assessment / Plan
Assessment / Plan
Physical exam:
General: Chronically ill and No Apparent Distress
HEENT: Normocephalic, Atraumatic and Moist Mucous Membranes
Respiratory: Clear to Auscultation; Negative Wheezes, Rales or Rhonchi
Cardiac: Regular Rhythm and S1/S2
GI: Soft, Nontender and Nondistended
Musculoskeletal: No Clubbing, No Cyanosis and No Edema
Neuro: Awake, Alert and Oriented, no neuro-deficits, cognitive deficits present
Psych: Calm
A/P:
Syncope:
-Continue environmental monitoring technician
-Cardiology consult appreciated
-Plan for echocardiogram- noted.
-PT OT eval-home PT
Anemia of chronic disease
-Hb 8.7 s/p transfusion
-Likely anemia of chronic disease but proceed to do anemia workup
-Might benefit from Procrit as outpatient but needs weigh in pro's con's
Elevated troponin:
-Elevated troponin likely due to non-ischemic myocardial injury
-Cardio on board
Hypertensive urgency:
-Given hydralazine 10 mg IV x 1
-Increase Norvasc from 2.5 to 5 mg p.o. daily
-Decrease Toprol-XL from 100 to 50 mg p.o. daily to avoid AV block or significant bradycardia.
-May need to further adjust
ANITHA on CKD:
-IV fluids and blood transfusion
-Cr improving with hydration--> Cr 4.4-->3.9
-Avoid nephrotoxic
-Monitor renal function closely
-Monitor urine output
-d/w renal function with patient today. Does not want aggressive measures. Refused HD. States will d/w with primary doctor.
Paroxysmal atrial fibrillation:
-Not on anticoagulant due to past aortic dissection repair and risk of falls
-Continue rate control, beta-blockers
-Continue cardiac monitoring
Rectal carcinoma with metastasis:
-History of sigmoidectomy in the past and chemotherapy
-He has been on hospice and then transition to palliative care
Other medical problems:
Prostate cancer s/p radiation
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
GI bleeding in the past
Hyperlipidemia
GERD
DVT prophylaxis:
-SCD
Code status:
-DNR
On Palliative care
halfway prognosis poor.
Anticipated Discharge: Within 24 hours
Subjective/Interval History
-
Date of Service: August 13, 2023
states he was on hospice for 1 year and graduated
does not want any aggressive medical care in hospital
wants to go home
states he was told he has kidney problem by primary doctor
no chest pain or sob or headache
Objective Data
-
Labs:
Laboratory Results
08/13/23
04:51
WBC 11.0 H
Hgb 8.7 L D
Hct 26.2 L
Plt Count 223 D
Sodium 135
Potassium 4.5
Chloride 107
Carbon Dioxide 18 L
BUN 46 H
Creatinine 3.9 H
Glucose 82
Calcium 9.0
Vital Signs:
Vital Signs
Temp Pulse Resp BP Pulse Ox
97.7 F 50 18 201/80 100
08/13/23 07:00 08/13/23 07:00 08/13/23 07:00 08/13/23 07:00 08/13/23 07:00
I&O
08/12/23 08/13/23 08/14/23
06:59 06:59 06:59
Intake Total 240 / 240 250 / 490 240 / 240
Output Total 750 / 750 1200 / 1200
Balance -510 / -510 250 / -710 -960 / -960
[2023-08-13 11:00] VITALS: BP 197/91
--- NOTE | 2023-08-13 15:02 | W.DCSUMMARY ---
Discharge Summary
Discharge Data
Date of Admission: 08/11/23
Date of Discharge: 08/13/23
-
Pending Results: No
Hospital Course
83-year-old male past medical history of atrial fibrillation, rectal cancer with metastasis, hypertension, anemia of chronic disease, CKD, prostate cancer status post radiation, PVD, hyperlipidemia, GERD who is presenting from home with syncope.
Patient was found to uncontrolled blood pressure. Cardiology was consulted. Patient with anemia and received blood transfusion. Patient hemoglobin stabilized. Patient with severe ANITHA on CKD. Patient creatinine improved with IV fluid
resuscitation. Patient did not want any aggressive measures and did not want work up for elevated creatine. States he was told in the past by primary doctor for kidney dysfunction. Patient did not want to pursue any further work up and if
creatinine continued to worsened, he did not want dialysis. Patient blood pressure persistently elevated and Norvasc was increased to 10 mg. Toprol was decreased due to bradycardia. Patient insisting on going home and wants to leave AGAINST
MEDICAL ADVICE. Patient understand the risk of stroke, myocardial infarction and .. Patient was offered to continue staying in the hospital and being monitored closely on telemetry and continue to receive IV medications and to continue with
aggressive medical management. Patient refused and said he wants to go home. Patient signed AMA form. Medications were prescribed and recommended to follow-up with primary doctor.
Discharge Plan
-
Patient Disposition: Against Medical Advice
Discharge Diagnosis/Procedures: Syncope
Uncontrolled hypertension
Anemia
Troponin elevation
Acute kidney injury on chronic kidney disease
Referrals:
Lewis Fuentes MD [Family Provider] - Immediately
Prescriptions:
New
metoprolol succinate 50 mg Tablet Extended Release 24 Hr
50 mg PO DAILY 30 Days Qty: 30 0RF
amlodipine 10 mg Tablet
10 mg PO DAILY 30 Days Qty: 30 0RF
hydralazine 10 mg tablet
10 mg PO BID PRN (Reason: SBP>150) Qty: 60 0RF
Continued
omega 2-vbj-hvp-fish oil 1 EACH capsule
1 cap PO DAILY
ascorbic acid (vitamin C) [Vitamin C] 500 MG tablet
500 mg PO DAILY
acetaminophen 500 mg Tablet
1,000 mg PO DAILY
omeprazole 20 mg capsule,delayed release(DR/EC)
20 mg PO DAILY
calcium carb-mag ox-zinc sulf 333-133-5 mg Tablet
1 tab PO DAILY
Discontinued
metoprolol succinate 100 MG tablet extended release 24 hr
100 mg PO DAILY
amlodipine 2.5 mg tablet
2.5 mg PO DAILY
Discharge Orders:
Discharge Patient (As Directed); Ordered 08/13/23
Ordered By: Alfredito Rehman
Discharge Date and Time
Discharge Date/Time: 08/13/23 15:57
--- NOTE | 2023-08-13 15:06 | CM ---
Spoke with patient in room.
Offered VN he declined need.
He said he wants to go home.TT MD of patient requested. As per RN pt receiving BP meds to lower BP.
He said his will drive him home.
Remained under observation .
PLAN: Home no needs. Left AMA
== END 2023-08-13 15:57 | disposition left against medical advice (07) ==
LOC: 3 WEST ACU 18:35
PROVIDERS: Clinical Nurse Specialist Family Health; Emergency Medicine; Physician Assistant; ADMITTING PHYSICIAN Hospitalist; ATTENDING PHYSICIAN Hospitalist; CONSULT PHYSICIAN Nuclear Medicine Nuclear Cardiology; EMERGENCY PHYSICIAN Emergency Medicine; FAMILY PHYSICIAN Family Medicine
DX: R55 Syncope and collapse (principal); I12.9 Hypertensive chronic kidney disease with stage 1 through stage 4 chronic kidney disease, or unspecified chronic kidney disease; N18.32 Chronic kidney disease, stage 3b; C78.7 Secondary malignant neoplasm of liver and intrahepatic bile duct; I73.9 Peripheral vascular disease, unspecified; E78.5 Hyperlipidemia, unspecified; N17.9 Acute kidney failure, unspecified; I5A Non-ischemic myocardial injury (non-traumatic); I16.0 Hypertensive urgency; D63.1 Anemia in chronic kidney disease; K21.9 Gastro-esophageal reflux disease without esophagitis; I48.0 Paroxysmal atrial fibrillation; Z53.29 Procedure and treatment not carried out because of patient's decision for other reasons; Z66 Do not resuscitate; Z79.899 Other long term (current) drug therapy; Z85.048 Personal history of other malignant neoplasm of rectum, rectosigmoid junction, and anus; Z85.46 Personal history of malignant neoplasm of prostate; Z87.891 Personal history of nicotine dependence
CPT/HCPCS: 36430; 70450; 73030; 73060; 80048; 80053; 80061; 80076; 81003; 81015; 82140; 82607; 82728; 82746; 83540; 83550; 84484; 85025; 85027; 86850; 86900; 86901; 86920; 93005; 93306; 96360; 97162; 97165; 99285; G0378; P9016

== ENCOUNTER 2023-10-27 21:55 | Observation (INO) | payer MEDICARE, BC, SELFPAY ==
[2023-10-27] VITALS (15 sets, daily range): BP systolic 139–167; BP diastolic 59–84; BMI 20.9
[2023-10-27 17:17] LABS: % Basophils 0.5 % (0-2); % Eosinophils 5.3 % (0-6); % Immature Granulocytes 0.7 % (0-0.5); % Lymphocytes 8.3 % (20.5-51.1); % Neutrophils 76.2 % (42.2-75.2); Absolute Basophils 0.1 10^3/uL (0-0.2); Absolute Eosinophils 0.7 10^3/uL (0-0.7); Absolute Immature Granulocytes 0.1 10^3/uL (0-0.05); Absolute Lymphocytes 1.1 10^3/uL (1.2-3.4); Absolute Monocytes 1.2 10^3/uL (0.1-0.6); Absolute Neutrophils 9.9 10^3/uL (1.4-6.5); Mean Corp Hgb Conc. 32.8 g/dL (33.0-37.0); Mean Corpuscular Volume 82.4 fL (80.0-94.0); Mean Platelet Volume 9.2 fL (7.4-10.4); Nucleated Red Blood Cells % 0 % (-); Platelet Count 362 10^3/uL (130-400); Red Blood Cell Count 2.44 10^6/uL (4.70-6.10); Red Cell Dist. Width 14.3 % (11.5-14.5)
[2023-10-27 17:21] LABS: Hematocrit 20.1 % (39.0-52.0); Hemoglobin 6.6 g/dL (13.0-18.0)
[2023-10-27 17:29] LABS: INR 1.42; PT 17.1 Sec (11.4-14.6)
[2023-10-27 17:30] LABS: APTT 46.3 Sec (23.4-35.0)
[2023-10-27 17:31] LABS: ALT (SGPT) 26 U/L (0-50); AST (SGOT) 35 U/L (17-59); Albumin 3.3 g/dl (3.5-5.0); Alkaline Phosphatase 255 U/L (38-126); Blood Urea Nitrogen 67 mg/dl (9-20); Calcium 8.7 mg/dl (8.4-10.2); Carbon Dioxide 21 mmol/L (22-30); Chloride 98 mmol/L (98-107); Estimated Creatinine Clearance 13 ml/min; Glucose 93 mg/dl (70-99); Lipase 89 U/L (23-300); Potassium 5.3 mmol/L (3.5-5.1); Sodium 130 mmol/L (135-145); Total Bilirubin 0.6 mg/dl (0.2-1.3); Total Protein 6.6 g/dl (6.3-8.2); eGFR 14.77
[2023-10-27 17:39] LABS: Troponin I < 0.012 ng/ml
--- NOTE | 2023-10-27 19:36 | ED.GENMED ---
History of Present Illness
General
Chief Complaint: Chest Pain
Source: patient and spouse
Exam Limitations: none
Time Seen by Provider: 10/27/23 17:36
Travel History
Have you had any contact with someone who has COVID-19?: No
Do you have any symptoms of coronavirus? Fever > 100 degrees, chills, cough, shortness of breath, sore throat, loss of taste or smell, muscle aches, or headache?: No
History of Present Illness
History of Present Illness:
83-year-old male presents with lower abdominal pain. He states it for started with some chest pain. Pain started after lunch. Admits to some nausea and weakness. Feels fatigued. Mild shortness of breath. No fevers.
Past History
Past History
ED Past Medical History: HTN, Renal failure, Other (Type I aortic dissection, rectal ca) and Other (Prior GI bleed, prostate cancer)
ED Past Surgical History: Bowel resection and Cardiac (Type I aortic dissection repair June 2009, Dr. Valencia)
Social History
Tobacco: Non-smoker
Alcohol: Daily
Drug: None
Personal:
Living: with family
Family History
Family History: Unable to obtain
Phy Exam
Physical Exam
Physical Exam:
CONSTITUTIONAL Patient alert and oriented to person, place and time. Well-appearing. Vital signs reviewed.
HEAD atraumatic, normocephalic.
EYES eyelids normal to inspection, Extraocular muscles intact, Conjunctiva normal, Sclera normal.
NECK normal range of motion, Trachea midline, no jugular venous distention.
RESPIRATORY CHEST No respiratory distress noted, Chest expansion equal, Bilateral breath sounds clear.
CARDIOVASCULAR regular rate and rhythm, systolic ejection murmur.
ABDOMEN abdomen nontender, Bowel sounds normal. No distention.
Rectal exam heme-negative
BACK normal inspection, no obvious deformities
UPPER EXTREMITY range of motion normal, Motor strength normal, no cyanosis, no edema.
LOWER EXTREMITY range of motion normal, Motor strength normal, no cyanosis, no edema.
NEURO Speech normal, No focal motor deficits, Shirley coma scale 15, Memory normal, Cranial Nerves intact to screening exam.
Scores
Heart Score for Chest Pain Patients
STEMI patient?: Not applicable
Course
Orders/Labs/Results
Orders:
Orders
10/27/23 16:22
Electrocardiogram (*1) Urgent
Reason for Study: Chest Pain
EKG- Treatment ONCE
10/27/23 17:01
Type+Screen Urgent
Complete Blood Count/With Diff Urgent
Comprehensive Metabolic Panel Urgent
Lipase Urgent
PTT Urgent
Prothrombin Time Urgent
Troponin I Urgent
10/27/23 17:54
* Blood Bank Products Urgent
Blood Bank Products: *Packed RBC Leuko(PRBC's)
Quantity: 2
Transfuse Today: Yes
Reason: Anemia
CT Abd/pel Without Iv Or Oral Urgent
Comment:
Reason For Exam: abd pain, h/o rectal ca
IV Insert/Care/Rem.- Treatment PRN
Abnormal Lab Results
10/27/23
17:01
WBC 13.0 H 10^3/uL
(4.8-10.8)
RBC 2.44 L 10^6/uL
(4.70-6.10)
Hgb 6.6 L* g/dL
(13.0-18.0)
Hct 20.1 L* %
(39.0-52.0)
MCHC 32.8 L g/dL
(33.0-37.0)
Abs Immat Gran (auto) 0.1 H 10^3/uL
(0-0.05)
Absolute Neuts (auto) 9.9 H 10^3/uL
(1.4-6.5)
Absolute Lymphs (auto) 1.1 L 10^3/uL
(1.2-3.4)
Absolute Monos (auto) 1.2 H 10^3/uL
(0.1-0.6)
Immature Gran % 0.7 H %
(0-0.5)
Neutrophils % 76.2 H %
(42.2-75.2)
Lymphocytes % 8.3 L %
(20.5-51.1)
PT 17.1 H Sec
(11.4-14.6)
APTT 46.3 H Sec
(23.4-35.0)
Sodium 130 L mmol/L
(135-145)
Potassium 5.3 H mmol/L
(3.5-5.1)
Carbon Dioxide 21 L mmol/L
(22-30)
BUN 67 H mg/dl
(9-20)
Creatinine 3.9 H mg/dL
(0.7-1.3)
Alkaline Phosphatase 255 H U/L
(38-126)
Albumin 3.3 L g/dl
(3.5-5.0)
Crossmatch IS Only See Detail
10/27/23 17:01
10/27/23 17:01
Vital Signs
Initial and Last Documented VS:
Initial Vital Signs
Temp
98.2 F
10/27/23 16:12
Last Documented Vital Signs
Temp Pulse Resp BP Pulse Ox
98.8 F 54 20 156/67 98
10/27/23 20:31 10/27/23 20:31 10/27/23 20:31 10/27/23 20:31 10/27/23 20:31
MDM/Problems Addressed
MDM/Problems Addressed:
Chronic kidney disease, acute severe anemia
*Radiology
Radiology exam reviewed: radiology read reviewed
*Pulse Oximetry
Patient hypoxic: no
*EKG
Interpreted by ED Provider?: Yes
Interpretation: abnormal
Rate: bradycardiac
Rhythm: sinus
[place]: normal axis
Ischemia: non-specific ST changes
*Stereotyper Interpretation
Rate: normal
Interpretation: normal
Rhythm: sinus
*Critical Care Note
Total Time (30-74mins, 75-104mins- exclusive of procedures): 40 minutes
Data Reviewed
Review of Other/Old Records Reveals: Discharge Summary (from august)
Source: patient and family
Prescriptions/Medications Considered But Not Given:
considered PPI gtt but heme neg stool
Patient Management
Discussion with other providers: Hospitalist and Radiologist
Escalation/DeEscalation of care consider admission/obs:
83-year-old male with history of metastatic rectal cancer and chronic kidney disease presents with symptoms as noted above. Transfused. Admit. Hemodynamically stable
ED Attending Note
-
Portions of this chart may have been created with voice recognition software.� Occasional wrong word or��sound alike� substitutions may have occurred due to the inherent limitations of voice recognition software.
Discharge Plan
Departure
Patient Disposition: Admit
Date of Disposition: 10/27/23
Time of Disposition: 19:37
Presentation/result/management discussed w/ accepting MD/DO: Hospitalist
Discharge Problem:
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
Prescriptions:
No Action
omega 1-uii-ren-fish oil 1 EACH capsule
1 cap PO DAILY
ascorbic acid (vitamin C) [Vitamin C] 500 MG tablet
500 mg PO DAILY
acetaminophen 500 mg Tablet
1,000 mg PO DAILY
omeprazole 20 mg capsule,delayed release(DR/EC)
20 mg PO DAILY
calcium carb-mag ox-zinc sulf 333-133-5 mg Tablet
1 tab PO DAILY
metoprolol succinate 50 mg Tablet Extended Release 24 Hr
50 mg PO DAILY 30 Days Qty: 30 0RF
hydralazine 10 mg tablet
10 mg PO BID PRN (Reason: SBP>150) Qty: 60 0RF
amlodipine 2.5 mg tablet
2.5 mg PO DAILY
Referrals:
Lewis Fuentes MD [Family Provider] -
Interventions
Interventions:
*Risk Screen - Suicide Last Done: 10/27/23 16:24
*General Assessment Last Done: 10/27/23 16:24
*Neglect/Abuse Screening Last Done: 10/27/23 16:24
ED- Fall Risk Assessment Last Done: 10/27/23 16:23
*ED COVID-19 Vaccine History Last Done: 10/27/23 16:22
ED- Cardiac Assessment Last Done: 10/27/23 20:27
Discharge Date and Time
Print Language: WELSH
--- NOTE | 2023-10-27 21:35 | HPS.HSE ---
Addendum entered and electronically signed by Isra June DO 10/27/23 22:30:
Patient seen and examined independently. Agree with findings and plan as set forth by Ida Akbar PA-C.
Patient is an 83y M with PMH significant for rectal carcinoma with mets to liver, A-Fib, HTN and CKD who presents to ED complaining of chest pain. Patient states that he had a single episode of chest pain today that has since resolved. He is
pain-free at present. Patient notes intermittent abdominal discomfort, but his chest pain today was different. Evaluation in the ED reveals significant anemia with Hgb = 6.6.
Patient has no desire to pursue any active treatments of his metastatic cancer. He is not interested in any endoscopic examinations or other invasive work-up.
Patient was previously on Hospice for his malignancy, but was discharged after a year.
Ass:
Chest Pain
Acute on Chronic Anemia
Metastatic Rectal Carcinoma
Hyponatremia
CKD IV
Paroxysmal Atrial Fibrillation
Benign Hypertension
Plan:
Admit for further evaluation and treatment.
Patient would like to receive his blood products and go home.
He is not interested in other evaluations / interventions.
Will ask CM to evaluate regarding discharge plans.
Given patient's goals of care - ? return to Hospice versus Palliative Care.
Original Note:
Family Physician
-
Family Physician: Lewis Fuentes
Chief Complaint
-
Chest/Abdominal Pain
History of Present Illness
This is a 83-year old male with a past medical history of rectal carcinoma with liver metastasis, AAA, a-fib,hypertension, hyperlipidemia, CKD, who presents to the ED for chest pain. Patient reports intermittent episodes of abdominal pain for the
past few months, but today pain was worse and associated with chest pain which prompted him to the come the emergency department for evaluation. Patient also reports weakness and fatigue. Work-up in ED revealed acute on chronic anemia. Hospitalist
group was asked to evaluate the patient for admission to the hospital.
Medical History
Past Medical History
Past Medical History: Reports Other
Additional Past Medical History:
Stage IIIB Rectal Carcinoma with known Liver Mets
-Prior Sigmoidectomy in June 2020 initially declined chemotherapy
-Recurrence/Liver Mass found in Feb 2021 then completed palliative chemotherapy with resolution of FDG avid uptake on PET scan and downtrending CEA
Paroxysmal Atrial Fibrillation
Essential Hypertension
Hyperlipidemia
CKD Stage IV
Prostate Cancer s/p Radiation
Past Surgical History: Reports Other
Additional Past Surgical History:
Type I Aortic Dissection Repair - Jun 2009
Sigmoidectomy
Social History
Tobacco: Former Smoker (quit 1964)
Alcohol: None
Drug: None
Personal:
Living: With Family
Employment: Retired
Family History
Family History: Not pertinent
Allergies / Home Medications
Allergies reflects when Allergies were last updated in [employer]
Home Medications with original date entered in [employer]
Allergy/Medication List:
Allergies
Allergy/AdvReac Type Severity Reaction Status Date / Time
No Known Drug Allergies Allergy Unknown Verified 10/27/23 16:12
Home Medications
omega 8-aih-ysy-fish oil 250 mg-500 mg-1,000 mg capsule 1 cap PO DAILY High cholesterol 09/21/15
ascorbic acid (vitamin C) 500 mg tablet (Vitamin C) 500 mg PO DAILY Supplement 05/31/20
acetaminophen 500 mg tablet 1,000 mg PO DAILY Pain 08/11/23
calcium carbonate 333 mg-magnesium oxide 133 mg-zinc sulf 5 mg tablet 1 tab PO DAILY Supplement 08/11/23
omeprazole 20 mg capsule,delayed release 20 mg PO DAILY Gastrointestinal Issue 08/11/23
hydralazine 10 mg tablet 10 mg PO BID PRN SBP>150 #60 tabs 08/13/23
metoprolol succinate 50 mg tablet,extended release 24 hr 50 mg PO DAILY 30 days #30 tabs 08/13/23
amlodipine 2.5 mg tablet 2.5 mg PO DAILY 10/27/23
Review of Systems
-
A 12 point ROS was completed and negative except as noted: Yes
Constitutional: Denies Fever or Chills
Respiratory: Denies Cough or Trouble Breathing
Cardiac: Reports Chest Pain; Denies Palpitations
Abdomen/GI: Reports Abdominal Pain; Denies Nausea, Vomiting, Diarrhea or Constipated
Physical Exam
Vital Signs
Vital Signs
Temp Pulse Resp BP Pulse Ox
98.8 F 58 22 162/84 98
10/27/23 20:31 10/27/23 21:00 10/27/23 21:00 10/27/23 21:00 10/27/23 21:00
Physical Exam
General: Comfortable and Conversant
HEENT: NormoCephalic and Anicteric
Respiratory: Clear and Non Labored Respirations
Cardiac: S1/S2 and Regular Rhythm
GI: Soft and Tender (Mild in epigastric/right upper quadrant without rebound or guarding)
Rectal: Hem Negative (Per ED Provider)
Musculoskeletal: No Clubbing, No Cyanosis and No Edema
Skin: Warm and Dry
Neuro: Awake, Alert, Oriented and Nonfocal/grossly intact
Psych: Calm
Laboratory Results
-
10/27/23 17:01
10/27/23 17:01
Laboratory Results
PT 17.1 Sec (11.4-14.6) H 10/27/23 17:01
INR 1.42 10/27/23 17:01
APTT 46.3 Sec (23.4-35.0) H 10/27/23 17:01
Total Bilirubin 0.6 mg/dl (0.2-1.3) 10/27/23 17:01
AST 35 U/L (17-59) 10/27/23 17:01
ALT 26 U/L (0-50) 10/27/23 17:01
Alkaline Phosphatase 255 U/L (38-126) H 10/27/23 17:01
Troponin I < 0.012 ng/ml 10/27/23 17:01
Lipase 89 U/L (23-300) 10/27/23 17:01
Data Reviewed
-
Lab Data: Labs Reviewed by me
Impression/Plan
-
Chest/Abdominal Pain, suspect secondary to recurrent Rectal Carcinoma
-Patient is adamant he would not want aggressive treatment including chemotherapy
-Continue morphine prn
Acute on Chronic Anemia, suspect related to Chronic Disease
-Transfuse 2 units of PRBCs
-Check iron studies, vitamin b12 and folic acid
-Patient does not want to pursue additional work-up with upper endoscopy or colonoscopy
Hyponatremia
-Give IVFs overnight
-Recheck sodium in AM
CKD Stage 4
-Monitor creatinine
-Patient has previously declined dialysis
Paroxysmal Atrial Fibrillation
-Patient is not on anticoagulation due to history of GI Bleed
-Continue metoprolol
Essential Hypertension
-Continue metoprolol and amlodipine
DVT proph: SCDs
Code Status: DNR
[2023-10-27 21:44] LABS: Iron 25 ug/dl (49-181)
[2023-10-27 21:53] LABS: Percent Saturation 13 % (20-50); Total Iron Binding Capacity 181 ug/dl (261-462)
[2023-10-28] VITALS (9 sets, daily range): BP systolic 151–183; BP diastolic 63–92; PULSE 62; O2SAT 98
[2023-10-28 00:06] LABS: Vitamin B12 621 pg/ml (239-931)
[2023-10-28] MEDS: NSS 1000 IV (00:09)
[2023-10-28 00:31] LABS: CEA 607 ng/ml
[2023-10-28 05:54] LABS: Hematocrit 24.8 % (39.0-52.0); Mean Corp Hgb Conc. 33.9 g/dL (33.0-37.0); Mean Corpuscular Hgb 27.9 pg (27.0-31.0); Mean Corpuscular Volume 82.4 fL (80.0-94.0); Mean Platelet Volume 9.1 fL (7.4-10.4); Platelet Count 332 10^3/uL (130-400); Red Blood Cell Count 3.01 10^6/uL (4.70-6.10); White Blood Cell Count 11.6 10^3/uL (4.8-10.8)
[2023-10-28 06:15] LABS: Hemoglobin 8.4 g/dL (13.0-18.0)
[2023-10-28 06:37] LABS: Blood Urea Nitrogen 67 mg/dl (9-20); Calcium 9.1 mg/dl (8.4-10.2); Carbon Dioxide 18 mmol/L (22-30); Chloride 101 mmol/L (98-107); Estimated Creatinine Clearance 13 ml/min; Glucose 83 mg/dl (70-99); Magnesium 1.9 mg/dl (1.6-2.3); Potassium 4.9 mmol/L (3.5-5.1); Sodium 134 mmol/L (135-145); eGFR 14.77
[2023-10-28] MEDS: NORVASC 2.5 MG PO (08:10)
--- NOTE | 2023-10-28 08:32 | W.PN.HOSP.TC ---
Addendum entered and electronically signed by Bin Hernandez MD 10/28/23 13:51:
I spoke with patient's son, Stevan Temple and he is aware of his prognosis and explained what is going on during this hospital stay as well. He is on board if he qualifies for hospice but also wants to make sure that he gets some help with
probably home health or otherwise if it does not go on hospice. He is open to discussed with counter caser and hospice nurse and he would like his mother to be involved in the conversation along with his dad as well
Original Note:
Today's Communication/Plan
-
Continue current management. Hospice consulted.
Assessment / Plan
Assessment / Plan
Physical exam:
General: Chronically ill
HEENT: Normocephalic, Atraumatic and Moist Mucous Membranes
Respiratory: Clear to Auscultation; Negative Wheezes, Rales or Rhonchi
Cardiac: Regular Rhythm and S1/S2
GI: Soft, Nontender and Nondistended
Musculoskeletal: No Clubbing, No Cyanosis and No Edema
Neuro: Awake, Alert and Oriented
Psych: Calm
A/P:
Chest/Abdominal Pain, suspect secondary to recurrent Rectal Carcinoma
-Patient is adamant he would not want aggressive treatment including chemotherapy
-Continue morphine prn
-Hospice consult
-Discussed with hospice nurse today and she will evaluate the patient today. Will repeat H&H and will discuss with hospice nurse and depending on results and discussions will determine discharge planning today or tomorrow if no further inpatient
evaluation warranted or desired by patient.
Acute on Chronic Anemia, suspect related to Chronic Disease
-Transfuse 2 units of PRBCs. Hemoglobin 6.6--> up to 8.4 after transfusions
-Check iron studies, vitamin b12 and folic acid
-Patient does not want to pursue additional work-up with upper endoscopy or colonoscopy
Hyponatremia
-Give IVFs overnight
-Recheck sodium. Sodium 130---> up to 134
CKD Stage 4
-Monitor creatinine. Creatinine 3.9
-Patient has previously declined dialysis. Patient reiterated he does not want dialysis even if renal function continues to deteriorate.
Paroxysmal Atrial Fibrillation
-Patient is not on anticoagulation due to history of GI Bleed
-Continue metoprolol
Essential Hypertension
-Continue metoprolol and amlodipine
DVT proph: SCDs
Code Status: DNR
Anticipated Discharge: Today
Subjective/Interval History
-
Date of Service: October 28, 2023
Patient denies any abdominal pain nausea vomiting. He has noted dark stools in the past but not interested in any GI intervention. He feels close to his baseline
Objective Data
-
Labs:
Laboratory Results
10/28/23
05:29
WBC 11.6 H
Hgb 8.4 L D
Hct 24.8 L
Plt Count 332
Sodium 134 L
Potassium 4.9
Chloride 101
Carbon Dioxide 18 L
BUN 67 H
Creatinine 3.9 H
Glucose 83
Calcium 9.1
Vital Signs:
Vital Signs
Temp Pulse Resp BP Pulse Ox
98.2 F 57 19 163/66 97
10/28/23 07:15 10/28/23 08:00 10/28/23 08:00 10/28/23 08:00 10/28/23 08:00
I&O
10/27/23 10/28/23 10/29/23
06:59 06:59 06:59
Intake Total 500 / 500 375 / 375
Output Total 300 / 300 200 / 200
Balance 200 / 200 175 / 175
--- NOTE | 2023-10-28 11:15 | HOSPNOTE ---
Spoke to patient about hospice and the philosophy. Patient was on [facility] and was discharged for extended prognosis. I asked patient if he wanted to keep seeking treatment coming in to the ED, He told me to leave and he did not wish for
hospice at this time and he wants to go home and will decide on hospice at a later date when he has symptoms to manage. I spoke with the nurse and she will place our contact name and number for hospice on his discharge instructions.
[2023-10-28] MEDS: TOPROL XL 50 MG PO (11:43)
--- NOTE | 2023-10-28 13:42 | W.DCSUMMARY ---
Discharge Summary
Discharge Data
Date of Admission: 10/27/23
Date of Discharge: 10/28/23
-
Pending Results: No
Hospital Course
Patient 83 years old male with history of metastatic rectal carcinoma, hypertension, advanced CKD came into the hospital symptomatic anemia. Patient hemoglobin noted to be 6.6 and received some blood transfusions and his hemoglobin went up to 8.4
and later on we had a repeat hemoglobin and it was stable and better at 9.6. Patient remains hemodynamically stable. No active bleed but concerns for slow GI bleed and or worsening anemia due to renal failure. Patient very eager to go home today
and refuses any further interventions. He does not want to pursue any further treatment for his underlying cancer. He does not want to pursue any further investigation of his anemia including no GI procedures. He does not want hemodialysis if his
renal function continues to deteriorate. I had lengthy discussion with the patient at bedside and family (son) over the phone and they all are in agreement the patient does not want to pursue any further workup or management. Strongly recommended
hospice or home health care but patient also declines both at the moment. Patient is cleared to be discharged in stable condition today but strongly recommend to have further discussion with palliative care as outpatient and or hospice so he does
not have to be readmitted multiple times in the near future based on his wishes. No other events were noticed.
Discharge duration: 35 minutes
Discharge Plan
-
Patient Disposition: Home (Routine Discharge)
Discharge Diagnosis/Procedures: Acute blood loss anemia. Suspicion for gastrointestinal bleed. Metastatic rectal cancer. End-stage renal disease not requiring dialysis yet.
Diet: Low Cholesterol and Low Sodium
Activity: As tolerated
Driving Restrictions: As prior to admission
Blood Work: PCP to order CBC, BMP within 1 week.
Referrals:
Lewis Fuentes MD [Family Provider] - in less than 1 week
Laure Carranza MD [Active] -
(
hospice phone number [phone]
Argelia Bond composition professor [phone]
)
Prescriptions:
Continued
omega 0-mcl-mzk-fish oil 1 EACH capsule
1 cap PO DAILY
ascorbic acid (vitamin C) [Vitamin C] 500 MG tablet
500 mg PO DAILY
acetaminophen 500 mg Tablet
1,000 mg PO DAILY
omeprazole 20 mg capsule,delayed release(DR/EC)
20 mg PO DAILY
calcium carb-mag ox-zinc sulf 333-133-5 mg Tablet
1 tab PO DAILY
metoprolol succinate 50 mg Tablet Extended Release 24 Hr
50 mg PO DAILY 30 Days Qty: 30 0RF
hydralazine 10 mg tablet
10 mg PO BID PRN (Reason: SBP>150) Qty: 60 0RF
amlodipine 2.5 mg tablet
2.5 mg PO DAILY
Discharge Orders:
Discharge Patient (As Directed); Ordered 10/28/23
Ordered By: Bin Hernandez
Discharge Date and Time
Discharge Date/Time: 10/28/23 17:34
Print Language: TRISTANIAN
[2023-10-28 14:22] LABS: Hematocrit 28.7 % (39.0-52.0); Hemoglobin 9.6 g/dL (13.0-18.0)
--- NOTE | 2023-10-28 16:35 | CM ---
Alert awake agitated patient in ED that wishes to be discharged with out hospice, VN or any other services.He lives with Latoya who lives in a 2 story home . He lives on first floor with 1 step to enter.He said he is independent in all
activities of daily living. Latoya said she assists with bathing at times.He was offered VN he declined need.'I am dying I want to go home.'Spoke with Stevan son and Latoya both aware pt is dc and is refusing all services. Hospice did see
him and gave him information. Latoya said she will call her son to pick him up today.PT OT suggested VN.Spoke with Mariajose VASQUEZ from ED aware he wants dc and no VN . said he would dc him today.
Has [facility]sa he said he does not use it.
[facility] in past cancelled
Pharmacy [facility]
PCP DR Fuentes
PLAN Home Declined VN
== END 2023-10-28 17:34 | disposition home or self-care (01) ==
LOC: ED 21:55
PROVIDERS: Physician Assistant Medical; ADMITTING PHYSICIAN Hospitalist; ATTENDING PHYSICIAN Hospitalist; EMERGENCY PHYSICIAN Emergency Medicine; FAMILY PHYSICIAN Family Medicine
DX: D62 Acute posthemorrhagic anemia (principal); R07.9 Chest pain, unspecified; R10.9 Unspecified abdominal pain; R11.0 Nausea; N18.4 Chronic kidney disease, stage 4 (severe); R53.1 Weakness; R53.83 Other fatigue; R06.02 Shortness of breath; E87.1 Hypo-osmolality and hyponatremia; I48.0 Paroxysmal atrial fibrillation; E78.5 Hyperlipidemia, unspecified; I12.9 Hypertensive chronic kidney disease with stage 1 through stage 4 chronic kidney disease, or unspecified chronic kidney disease; D64.9 Anemia, unspecified; I31.39 Other pericardial effusion (noninflammatory); K80.20 Calculus of gallbladder without cholecystitis without obstruction; C18.9 Malignant neoplasm of colon, unspecified; C78.7 Secondary malignant neoplasm of liver and intrahepatic bile duct; Z85.46 Personal history of malignant neoplasm of prostate; Z87.19 Personal history of other diseases of the digestive system; Z86.79 Personal history of other diseases of the circulatory system; Z90.49 Acquired absence of other specified parts of digestive tract; Z87.891 Personal history of nicotine dependence; Z66 Do not resuscitate
CPT/HCPCS: 36430; 74176; 80048; 80053; 82378; 82607; 82728; 83540; 83550; 83690; 83735; 84484; 85014; 85018; 85025; 85027; 85610; 85730; 86850; 86900; 86901; 86920; 93005; 97161; 99291; G0378; P9016

== ENCOUNTER 2023-11-06 18:29 | Emergency (ER) | payer MEDICARE, BC, SELFPAY ==
[2023-11-06 18:30] VITALS: BP 182/65
[2023-11-06 19:00] VITALS: BP 138/62
[2023-11-06] MEDS: OMNIPAQUE 50 ML PO (19:23)
[2023-11-06 20:25] LABS: % Basophils 0.5 % (0-2); % Eosinophils 6.9 % (0-6); % Immature Granulocytes 0.6 % (0-0.5); % Lymphocytes 6.2 % (20.5-51.1); % Monocytes 8.2 % (1.7-9.3); % Neutrophils 77.6 % (42.2-75.2); Absolute Basophils 0.1 10^3/uL (0-0.2); Absolute Eosinophils 1.2 10^3/uL (0-0.7); Absolute Immature Granulocytes 0.1 10^3/uL (0-0.05); Absolute Lymphocytes 1.1 10^3/uL (1.2-3.4); Absolute Monocytes 1.4 10^3/uL (0.1-0.6); Absolute Neutrophils 13.2 10^3/uL (1.4-6.5); Hematocrit 27.2 % (39.0-52.0); Mean Corp Hgb Conc. 33.1 g/dL (33.0-37.0); Mean Corpuscular Hgb 27.8 pg (27.0-31.0); Mean Platelet Volume 9.8 fL (7.4-10.4); Nucleated Red Blood Cells % 0 % (-); Platelet Count 362 10^3/uL (130-400); Red Blood Cell Count 3.24 10^6/uL (4.70-6.10); Red Cell Dist. Width 15.1 % (11.5-14.5)
[2023-11-06 20:28] LABS: Urine Albumin 1+ (Neg - Trace); Urine Bilirubin Negative (Negative); Urine Character Clear (Clear); Urine Color Yellow; Urine Glucose Negative (Negative); Urine Ketone Negative (Negative); Urine Leukocyte Negative (Negative); Urine Nitrite Negative (Negative); Urine Occult Blood 2+ (Negative); Urine Urobilinogen Negative (Neg - 1+)
[2023-11-06 20:35] LABS: Urine Squamous Cell 0-2 /LPF (Few)
[2023-11-06 20:36] LABS: Urine Bacteria Few (Negative); Urine White Cell 0-2 /HPF (0-5)
[2023-11-06 20:59] LABS: ALT (SGPT) 25 U/L (0-50); AST (SGOT) 41 U/L (17-59); Albumin 3.5 g/dl (3.5-5.0); Alkaline Phosphatase 294 U/L (38-126); Blood Urea Nitrogen 61 mg/dl (9-20); Carbon Dioxide 19 mmol/L (22-30); Chloride 96 mmol/L (98-107); Glucose 91 mg/dl (70-99); Potassium 5.2 mmol/L (3.5-5.1); Sodium 128 mmol/L (135-145); Total Bilirubin 0.7 mg/dl (0.2-1.3); Total Protein 6.9 g/dl (6.3-8.2); eGFR 15.24
[2023-11-06 21:01] VITALS: BP 162/67
[2023-11-06 22:00] VITALS: BP 142/57
--- NOTE | 2023-11-06 22:50 | ED.GENMED ---
History of Present Illness
General
Chief Complaint: Abdominal Pain
Source: patient, spouse and family
Exam Limitations: none
Time Seen by Provider: 11/06/23 19:09
Nursing documentation reviewed up to this point in time: agreed with
Travel History
Have you had any contact with someone who has COVID-19?: No
Do you have any symptoms of coronavirus? Fever > 100 degrees, chills, cough, shortness of breath, sore throat, loss of taste or smell, muscle aches, or headache?: No
History of Present Illness
History of Present Illness:
83-year-old male with past medical history of hypertension, diabetes, previous cancer presenting to the emergency department today with concerns of lower abdominal pain that is intermittent with associated diarrhea no nausea or vomiting no fevers.
Past History
Past History
ED Past Medical History: HTN, Renal failure, Other (Type I aortic dissection, rectal ca) and Other (Prior GI bleed, prostate cancer)
ED Past Surgical History: Bowel resection and Cardiac (Type I aortic dissection repair June 2009, Dr. Valencia)
Social History
Tobacco: Non-smoker
Alcohol: Daily
Drug: None
Personal:
Living: with family
Family History
Family History: Unable to obtain
Review of Systems
Review of Systems
Allergies reviewed?: Yes
All Other Systems: ROS reviewed and negative except as documented in HPI and ROS
Phy Exam
Physical Exam
Physical Exam:
GENERAL: Alert , in no apparent distress
EYE: pupils equal and reactive
NECK: Supple, no significant adenopathy.
ENT: o/p clr, mmm.
CARDIAC: Regular rate and rhythm .
LUNGS: Clear breath sounds bilaterally, no acute respiratory distress, no wheezes/rales/rhonchi
ABDOMEN: Soft, without focal tenderness, no r/g, no cvat
NEUROLOGICAL: Alert and oriented, no focal neuro deficits
SKIN: Warm and dry, skin intact.
MUSCULOSKELETAL: No edema, well perfused.
PSYCH: Normal and appropriate interaction.
Course
Orders/Labs/Results
Orders:
Orders
11/06/23 19:15
CT Abd/pel (oral only)-DH Only Urgent
Reason For Exam: lower abd pain, no IV contrast due to labs. ok per ES
Iohexol [Omnipaque] See Protocol PO NOW STA
11/06/23 20:11
Complete Blood Count/With Diff Urgent
Comprehensive Metabolic Panel Urgent
Urinalysis Reflex To Culture Urgent
Date Specimen was Collected: 11/06/23
Time Specimen was Collected: 20:09
Urine Microscopic Reflex Cult Urgent
Abnormal Lab Results
11/06/23
20:11
WBC 17.0 H 10^3/uL
(4.8-10.8)
RBC 3.24 L 10^6/uL
(4.70-6.10)
Hgb 9.0 L g/dL
(13.0-18.0)
Hct 27.2 L %
(39.0-52.0)
RDW 15.1 H %
(11.5-14.5)
Abs Immat Gran (auto) 0.1 H 10^3/uL
(0-0.05)
Absolute Neuts (auto) 13.2 H 10^3/uL
(1.4-6.5)
Absolute Lymphs (auto) 1.1 L 10^3/uL
(1.2-3.4)
Absolute Monos (auto) 1.4 H 10^3/uL
(0.1-0.6)
Absolute Eos (auto) 1.2 H 10^3/uL
(0-0.7)
Immature Gran % 0.6 H %
(0-0.5)
Neutrophils % 77.6 H %
(42.2-75.2)
Lymphocytes % 6.2 L %
(20.5-51.1)
Eosinophils % 6.9 H %
(0-6)
Sodium 128 L mmol/L
(135-145)
Potassium 5.2 H mmol/L
(3.5-5.1)
Chloride 96 L mmol/L
(98-107)
Carbon Dioxide 19 L mmol/L
(22-30)
BUN 61 H mg/dl
(9-20)
Creatinine 3.8 H mg/dL
(0.7-1.3)
Alkaline Phosphatase 294 H U/L
(38-126)
Ur Occult Blood Reflex 2+ A
(Negative)
Urine RBC 3-6 A /HPF
(0-2)
Urine Bacteria (Reflex) Few A
(Negative)
Urine Albumin (Reflex) 1+ A
(Neg - Trace)
11/06/23 20:11
11/06/23 20:11
Vital Signs
Initial and Last Documented VS:
Initial Vital Signs
Temp Pulse BP Pulse Ox
97.8 F 56 182/65 96
11/06/23 18:30 11/06/23 18:30 11/06/23 18:30 11/06/23 18:30
Last Documented Vital Signs
Temp Pulse Resp BP Pulse Ox
97.8 F 63 17 159/72 98
11/06/23 18:30 11/06/23 23:30 11/06/23 23:30 11/06/23 23:00 11/06/23 18:43
MDM/Problems Addressed
MDM/Problems Addressed:
83-year-old male generally well-appearing coming in for intermittent lower abdominal pain and diarrhea since yesterday. On arrival hypertensive but this improved without specific treatment otherwise vital signs are normal. White count of 17
however has been somewhat elevated over the past few months in our labs hemoglobin is 9 which is better than his previous baseline. Additionally has CKD at his baseline. Very slightly elevated potassium level and sodium level of 128. May be
secondary to patient's diarrhea however no additional symptoms otherwise associated with this is somewhat chronically low in the past. He was notified of this advised to increase sodium in his diet CT scan was performed without emergent findings
and no significant changes from previous. He was advised for very close outpatient follow-up. Advised for close feeding of labs and very strict return precautions.
*Critical Care Note
Total Time (30-74mins, 75-104mins- exclusive of procedures): Not Applicable
ED Attending Note
-
Portions of this chart may have been created with voice recognition software.� Occasional wrong word or��sound alike� substitutions may have occurred due to the inherent limitations of voice recognition software.
Discharge Plan
Departure
Patient Disposition: Home (Routine Discharge)
Date of Disposition: 11/06/23
Time of Disposition: 22:53
Patient with high blood pressure during this ER visit?: No
Condition: Good
Covid-19: Not Applicable
Discharge Problem:
Abdominal pain, CKD (chronic kidney disease), Hyponatremia
Instructions: Hyponatremia, Abdominal Pain
Prescriptions:
No Action
omega 2-jdw-ycj-fish oil 1 EACH capsule
1 cap PO DAILY
ascorbic acid (vitamin C) [Vitamin C] 500 MG tablet
500 mg PO DAILY
acetaminophen 500 mg Tablet
1,000 mg PO DAILY
omeprazole 20 mg capsule,delayed release(DR/EC)
20 mg PO DAILY
calcium carb-mag ox-zinc sulf 333-133-5 mg Tablet
1 tab PO DAILY
metoprolol succinate 50 mg Tablet Extended Release 24 Hr
50 mg PO DAILY 30 Days Qty: 30 0RF
hydralazine 10 mg tablet
10 mg PO BID PRN (Reason: SBP>150) Qty: 60 0RF
amlodipine 2.5 mg tablet
2.5 mg PO DAILY
Referrals:
Lewis Fuentes MD [Family Provider] -
Activity Restrictions/Additional Instructions:
You came to the emergency department today with concerns of abdominal pain. Here you had a CT scan without emergent findings. You were found to have a slightly low sodium level of 128 which should be monitored very closely and will need further
treatment and monitoring. Return to the emergency department for any worsening, new or concerning symptoms.
Interventions
Interventions:
*Risk Screen - Suicide Last Done: 11/06/23 18:46
*General Assessment Last Done: 11/06/23 18:46
*Neglect/Abuse Screening Last Done: 11/06/23 18:46
ED- Fall Risk Assessment Last Done: 11/06/23 18:46
*ED COVID-19 Vaccine History Last Done: 11/07/23 00:19
*Nursing Disposition Last Done: 11/07/23 00:19
MU-Icaakc-Palyinyanx Assessment Last Done: 11/06/23 18:46
Discharge Date and Time
Discharge Date/Time: 11/07/23 00:20
Print Language: BENGALI
[2023-11-06 23:00] VITALS: BP 159/72
== END 2023-11-07 00:20 | disposition home or self-care (01) ==
LOC: EMR 18:29
PROVIDERS: Physician Assistant; EMERGENCY PHYSICIAN Emergency Medicine; FAMILY PHYSICIAN Family Medicine
DX: R10.30 Lower abdominal pain, unspecified (principal); I12.9 Hypertensive chronic kidney disease with stage 1 through stage 4 chronic kidney disease, or unspecified chronic kidney disease; E11.22 Type 2 diabetes mellitus with diabetic chronic kidney disease; N18.9 Chronic kidney disease, unspecified; E87.1 Hypo-osmolality and hyponatremia; Z85.048 Personal history of other malignant neoplasm of rectum, rectosigmoid junction, and anus; Z85.46 Personal history of malignant neoplasm of prostate
CPT/HCPCS: 99284; 74176; 80053; 81003; 81015; 85025

== ENCOUNTER 2023-11-12 14:27 | Inpatient (IN) | payer MEDICARE, BC, SELFPAY ==
[2023-11-12 05:03] VITALS: BP 173/82
--- NOTE | 2023-11-12 07:43 | ED.GENMED ---
History of Present Illness
General
Chief Complaint: Fall
Source: patient
Exam Limitations: none
Time Seen by Provider: 11/12/23 07:28
Travel History
Have you had any contact with someone who has COVID-19?: No
Do you have any symptoms of coronavirus? Fever > 100 degrees, chills, cough, shortness of breath, sore throat, loss of taste or smell, muscle aches, or headache?: No
History of Present Illness
History of Present Illness:
83-year-old male presents with generalized weakness resulting in a slide out of his couch earlier today. Try to get from the couch to the bathroom but was unable to support his weight. He did not sustain any injuries from this. He sat on the
floor until his to get to him. He has a history of liver cancer. He was on hospice but was discharged from hospice. Patient is frustrated as he keeps Returning here with abdominal pain scans were done and nothing is found. Main issue at
this point is generalized weakness.
Past History
Past History
ED Past Medical History: HTN, Renal failure, Other (Type I aortic dissection, rectal ca) and Other (Prior GI bleed, prostate cancer)
ED Past Surgical History: Bowel resection and Cardiac (Type I aortic dissection repair June 2009, Dr. Valencia)
Social History
Tobacco: Non-smoker
Alcohol: Daily
Drug: None
Personal:
Living: with family
Family History
Family History: Unable to obtain
Phy Exam
Physical Exam
Physical Exam:
General: Cachectic appearing chronically ill male no acute respiratory distress
HEENT: Normocephalic mucosa dry neck is supple
Heart: Regular rate and rhythm
Lungs: Clear no wheeze or rales
Abdomen is soft but mildly diffusely tender
Extremities: No cyanosis
Musculoskeletal spine is nontender
Neurologic: Alert and oriented no facial asymmetry
Course
Orders/Labs/Results
Orders:
Orders
11/12/23 08:50
Complete Blood Count/With Diff Urgent
Comprehensive Metabolic Panel Urgent
Lipase Urgent
11/12/23 10:03
Electrocardiogram (*1) Urgent
Reason for Study: Fatigue / Weakness
EKG- Treatment ONCE
11/12/23 10:10
Dextrose 50%-Water [Dextrose 50% Syringe] 25 grams IV NOW STA
Insulin Human Regular [Novolin R] 8 units IV NOW STA
Sodium Zirconium Cyclosilicate [Lokelma] 10 gram PO NOW STA
Abnormal Lab Results
11/12/23
08:50
WBC 15.2 H 10^3/uL
(4.8-10.8)
RBC 3.60 L 10^6/uL
(4.70-6.10)
Hgb 9.9 L g/dL
(13.0-18.0)
Hct 30.3 L %
(39.0-52.0)
MCHC 32.7 L g/dL
(33.0-37.0)
RDW 15.5 H %
(11.5-14.5)
Abs Immat Gran (auto) 0.1 H 10^3/uL
(0-0.05)
Absolute Neuts (auto) 12.4 H 10^3/uL
(1.4-6.5)
Absolute Lymphs (auto) 1.0 L 10^3/uL
(1.2-3.4)
Absolute Monos (auto) 1.6 H 10^3/uL
(0.1-0.6)
Immature Gran % 0.9 H %
(0-0.5)
Neutrophils % 81.5 H %
(42.2-75.2)
Lymphocytes % 6.5 L %
(20.5-51.1)
Monocytes % 10.2 H %
(1.7-9.3)
Sodium 130 L mmol/L
(135-145)
Potassium 5.8 H mmol/L
(3.5-5.1)
Chloride 96 L mmol/L
(98-107)
BUN 60 H mg/dl
(9-20)
Creatinine 4.2 H* mg/dL
(0.7-1.3)
AST 64 H U/L
(17-59)
Alkaline Phosphatase 341 H U/L
(38-126)
11/12/23 08:50
11/12/23 08:50
Vital Signs
Initial and Last Documented VS:
Initial Vital Signs
Temp Pulse Resp BP Pulse Ox
97.7 F 82 18 173/82 98
11/12/23 05:03 11/12/23 05:03 11/12/23 05:03 11/12/23 05:03 11/12/23 05:03
Last Documented Vital Signs
Temp Pulse Resp BP Pulse Ox
97.7 F 82 18 173/82 98
11/12/23 05:03 11/12/23 05:03 11/12/23 05:03 11/12/23 05:03 11/12/23 05:03
MDM/Problems Addressed
Differential Diagnosis Includes:
Generalized weakness resulting in inability to support his weight earlier without any injury sustained. He was here at the end of October and was noted to have a borderline low sodium. Will recheck labs.
*Critical Care Note
Total Time (30-74mins, 75-104mins- exclusive of procedures): Not Applicable
Update Note
Update Note:
Patient reevaluated quite fatigued upon reassessment. Noted to have a potassium of 5.8 which is worse than it has been. His creatinine is also acutely high at 4.2. Patient is too weak to support his weight and fell today because of weakness.
Will start treatment with Lokelma insulin and dextrose for his hyperkalemia EKG pending. Admitted to hospitalist service
ED Attending Note
-
Portions of this chart may have been created with voice recognition software.� Occasional wrong word or��sound alike� substitutions may have occurred due to the inherent limitations of voice recognition software.
Discharge Plan
Departure
Patient Disposition: Admit
Date of Disposition: 11/12/23
Time of Disposition: 10:16
Admit to: Telemetry
Presentation/result/management discussed w/ accepting MD/DO: Hospitalist
Discharge Problem:
Acute hyperkalemia, Weakness
Prescriptions:
No Action
omega 1-bse-bwu-fish oil 1 EACH capsule
1 cap PO DAILY
ascorbic acid (vitamin C) [Vitamin C] 500 MG tablet
500 mg PO DAILY
acetaminophen 500 mg Tablet
1,000 mg PO DAILY
omeprazole 20 mg capsule,delayed release(DR/EC)
20 mg PO DAILY
metoprolol succinate 50 mg Tablet Extended Release 24 Hr
50 mg PO DAILY 30 Days Qty: 30 0RF
hydralazine 10 mg tablet
10 mg PO BID PRN (Reason: SBP>150) Qty: 60 0RF
amlodipine 2.5 mg tablet
2.5 mg PO DAILY
Theragen Tablet
1 tab PO DAILY
Referrals:
Lewis Fuentes MD [Family Provider] -
Interventions
Interventions:
ED- Neurological Assessment Last Done: 11/12/23 08:29
Discharge Date and Time
Print Language: GIBRALTARIAN
[2023-11-12 09:06] LABS: % Basophils 0.4 % (0-2); % Eosinophils 0.5 % (0-6); % Immature Granulocytes 0.9 % (0-0.5); % Lymphocytes 6.5 % (20.5-51.1); % Monocytes 10.2 % (1.7-9.3); % Neutrophils 81.5 % (42.2-75.2); Absolute Basophils 0.1 10^3/uL (0-0.2); Absolute Eosinophils 0.1 10^3/uL (0-0.7); Absolute Immature Granulocytes 0.1 10^3/uL (0-0.05); Absolute Monocytes 1.6 10^3/uL (0.1-0.6); Absolute Neutrophils 12.4 10^3/uL (1.4-6.5); Hematocrit 30.3 % (39.0-52.0); Hemoglobin 9.9 g/dL (13.0-18.0); Mean Corp Hgb Conc. 32.7 g/dL (33.0-37.0); Mean Corpuscular Hgb 27.5 pg (27.0-31.0); Mean Corpuscular Volume 84.2 fL (80.0-94.0); Mean Platelet Volume 9.2 fL (7.4-10.4); Nucleated Red Blood Cells % 0 % (-); Platelet Count 324 10^3/uL (130-400); Red Cell Dist. Width 15.5 % (11.5-14.5); White Blood Cell Count 15.2 10^3/uL (4.8-10.8)
[2023-11-12 09:28] LABS: ALT (SGPT) 18 U/L (0-50); AST (SGOT) 64 U/L (17-59); Albumin 3.5 g/dl (3.5-5.0); Alkaline Phosphatase 341 U/L (38-126); Blood Urea Nitrogen 60 mg/dl (9-20); Calcium 9.1 mg/dl (8.4-10.2); Carbon Dioxide 22 mmol/L (22-30); Chloride 96 mmol/L (98-107); Glucose 91 mg/dl (70-99); Lipase 56 U/L (23-300); Potassium 5.8 mmol/L (3.5-5.1); Sodium 130 mmol/L (135-145); Total Bilirubin 0.9 mg/dl (0.2-1.3); Total Protein 7.1 g/dl (6.3-8.2); eGFR 13.51
[2023-11-12] MEDS: LOKELMA 10 GRAM PO (10:32)
[2023-11-12] MEDS: NOVOLIN R 8 UNITS IV (10:32)
[2023-11-12] MEDS: DEXTROSE 50% SYRINGE 25 GRAMS IV (10:33)
--- NOTE | 2023-11-12 13:50 | HPS.HSE ---
Family Physician
-
Family Physician: Lewis Fuentes
Chief Complaint
-
Progressive weakness.
History of Present Illness
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
transfusion presents to the emergency room with generalized weakness and fatigue, falls. Patient is lethargic. Recent hospitalization with discussion of hospice option when patient declined.
While in emergency room patient found to be lethargic.
Additional workup showed acute on chronic kidney failure with creatinine above 4 and hyperkalemia.
Hyperkalemia was treated with potassium temporization.
Medical History
Past Medical History
Past Medical History: Reports Asthma (Paroxysmal atrial fibrillation), HTN and Other (Colon carcinoma metastatic to the liver. CKD stage IV)
Past Surgical History: Reports Other (Colorectal. Vascular)
Social History
Tobacco: Former Smoker
Alcohol: None
Drug: None
Personal:
Living: With Family
Family History
Family History: Not pertinent
Allergies / Home Medications
Allergies reflects when Allergies were last updated in [employer].
Home Medications with original date entered in [employer]
Allergy/Medication List:
Allergies
Allergy/AdvReac Type Severity Reaction Status Date / Time
No Known Drug Allergies Allergy Unknown Verified 11/12/23 05:03
Home Medications
omega 1-oqg-lzw-fish oil 250 mg-500 mg-1,000 mg capsule 1 cap PO DAILY High cholesterol 09/21/15
ascorbic acid (vitamin C) 500 mg tablet (Vitamin C) 500 mg PO DAILY Supplement 05/31/20
acetaminophen 500 mg tablet 1,000 mg PO DAILY Pain 08/11/23
omeprazole 20 mg capsule,delayed release 20 mg PO DAILY Gastrointestinal Issue 08/11/23
hydralazine 10 mg tablet 10 mg PO BID PRN SBP>150 #60 tabs 08/13/23
amlodipine 2.5 mg tablet 2.5 mg PO DAILY Blood Pressure 10/27/23
metoprolol succinate 50 mg tablet,extended release 24 hr 50 mg PO DAILY Blood Pressure 11/12/23
therapeutic multivitamin 1 tab PO DAILY Supplement 11/12/23
Review of Systems
-
A 12 point ROS was completed and negative except as noted: Yes
Constitutional: Reports See HPI
Physical Exam
Vital Signs
Vital Signs
Temp Pulse Resp BP Pulse Ox
97.7 F 82 18 173/82 98
11/12/23 05:03 11/12/23 05:03 11/12/23 05:03 11/12/23 05:03 11/12/23 05:03
Physical Exam
General: Well Developed, Well Nourished and No Apparent Distress
HEENT: NormoCephalic, Moist mucous membranes and Atraumatic
Respiratory: Clear
Cardiac: S1/S2 and Regular Rhythm; No Murmur or Rub
GI: Soft, Non Tender, Non Distended and Normal Bowel Sounds; No Organomegaly
Rectal: Deferred by Provider
Musculoskeletal: No Clubbing, No Cyanosis and No Edema
Skin: No Rash
Neuro: Nonfocal/grossly intact
Laboratory Results
-
11/12/23 08:50
11/12/23 08:50
Laboratory Results
Total Bilirubin 0.9 mg/dl (0.2-1.3) 11/12/23 08:50
AST 64 U/L (17-59) H 11/12/23 08:50
ALT 18 U/L (0-50) 11/12/23 08:50
Alkaline Phosphatase 341 U/L (38-126) H 11/12/23 08:50
Lipase 56 U/L (23-300) 11/12/23 08:50
Data Reviewed
-
CT Scan: Report Reviewed by me
Lab Data: Labs Reviewed by me
Impression/Plan
-
IMPRESSION:
Failure to thrive, presentation with progressive weakness and lethargy
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
Acute kidney injury on CKD stage IV
Hyperkalemia
Conditions prior to admission:
Chronic anemia requiring transfusion
CKD stage IV baseline rectal carcinoma stage IIIb diagnosed 05/28
� Status post elective robotic sigmoidectomy 05/28
� Declined systemic therapy initially, then found to have liver metastatic disease, treated with FOLFOX and Vectibix 02/27.
History of gastrointestinal hemorrhage
Paroxysmal atrial fibrillation.
Not on anticoagulation given falls and colorectal carcinoma.
History of prostate carcinoma
History of extensive type a aortic dissection status postrepair 06/2010
Hypertension
Dyslipidemia
Former smoker
PLAN:
Failure to thrive likely multifactorial and due to advanced colorectal carcinoma with hepatic metastatic disease
Recent imaging with CT scan of the abdomen pelvis reviewed.
Also in addition patient with progressive chronic kidney disease presents with ANITHA and hyperkalemia
Toxic metabolic encephalopathy due to above
Recently offered hospice, although declined
Now with conversation with patient as well as patient's over the phone, given patient declining any further aggressive treatment including systemic treatment, surgery, and with progressive declining and multiple hospitalizations, hospice would
be only reasonable option for comfort and avoiding multiple rehospitalization's
Case management consultation/hospice consultation
Physical therapy assessment
ANITHA on CKD stage IV baseline hyperkalemia
Bladder scan to rule out obstructive component
IV fluids.
Hyperkalemia treated while in the emergency room
Will follow BMP
Cardiovascular:
Hypertension, dyslipidemia, paroxysmal atrial fibrillation.
Continue preadmission antihypertensive regimen including amlodipine, hydralazine, metoprolol
Chronic anemia likely due to colorectal carcinoma.
Recent admission with hemoglobin down to 6 requiring transfusion
Hemoglobin stable in the range 8�9
Monitor.
Continue PPI.
CODE STATUS DNR
DVT prophylaxis heparin
[2023-11-12 17:09] VITALS: BP 148/68
[2023-11-12 19:13] VITALS: BP 158/66
[2023-11-12] MEDS: TYLENOL PO (19:20)
[2023-11-12] MEDS: NORVASC PO (19:36)
[2023-11-12] MEDS: TOPROL XL PO (19:44)
[2023-11-12] MEDS: THERAGRAN PO (19:44)
[2023-11-12] MEDS: VITAMIN C PO (19:44)
[2023-11-12] MEDS: PROTONIX PO (19:45)
[2023-11-12] MEDS: NSS IV (19:45)
[2023-11-12] MEDS: NSS 1000 IV (19:51)
[2023-11-12 19:53] VITALS: BP 153/82
[2023-11-12 19:54] VITALS: BMI 23.3
[2023-11-12] MEDS: HEPARIN 5000 UNITS SC (20:24)
[2023-11-12 22:17] VITALS: BP 149/66
[2023-11-12 23:23] VITALS: BP 150/77; BMI 20.4
[2023-11-13] VITALS (7 sets, daily range): BP systolic 139–154; BP diastolic 68–82
[2023-11-13] MEDS: NORVASC PO ×2 (08:32→08:54)
[2023-11-13] MEDS: HEPARIN 5000 UNITS SC ×2 (08:32→20:53)
[2023-11-13] MEDS: TOPROL XL PO ×2 (08:32→08:55)
[2023-11-13] MEDS: TYLENOL PO ×2 (08:32→08:55)
[2023-11-13] MEDS: VITAMIN C PO ×2 (08:32→08:55)
[2023-11-13] MEDS: THERAGRAN PO ×2 (08:32→08:55)
[2023-11-13] MEDS: PROTONIX PO ×2 (08:32→08:55)
[2023-11-13 08:37] LABS: % Basophils 0.2 % (0-2); % Eosinophils 0.2 % (0-6); % Immature Granulocytes 0.5 % (0-0.5); % Lymphocytes 8.3 % (20.5-51.1); % Monocytes 9.2 % (1.7-9.3); % Neutrophils 81.6 % (42.2-75.2); Absolute Immature Granulocytes 0.1 10^3/uL (0-0.05); Absolute Lymphocytes 1.1 10^3/uL (1.2-3.4); Absolute Monocytes 1.2 10^3/uL (0.1-0.6); Hematocrit 27.9 % (39.0-52.0); Mean Corp Hgb Conc. 32.3 g/dL (33.0-37.0); Mean Corpuscular Hgb 27.2 pg (27.0-31.0); Mean Corpuscular Volume 84.3 fL (80.0-94.0); Mean Platelet Volume 9.5 fL (7.4-10.4); Nucleated Red Blood Cells % 0 % (-); Platelet Count 288 10^3/uL (130-400); Red Blood Cell Count 3.31 10^6/uL (4.70-6.10); Red Cell Dist. Width 15.6 % (11.5-14.5); White Blood Cell Count 13.5 10^3/uL (4.8-10.8)
--- NOTE | 2023-11-13 08:52 | PTCARENOTE ---
Patient refused all PO morning meds. Provider notified. Patient also found hold his urinal in place for an extended period of time. Educated patient about skin integrity, etc., no further needs assessed at this time.
[2023-11-13 09:36] LABS: Blood Urea Nitrogen 59 mg/dl (9-20); Carbon Dioxide 17 mmol/L (22-30); Chloride 98 mmol/L (98-107); Estimated Creatinine Clearance 12 ml/min; Glucose 66 mg/dl (70-99); Potassium 5.5 mmol/L (3.5-5.1); Sodium 132 mmol/L (135-145); eGFR 13.13
--- NOTE | 2023-11-13 14:11 | CM ---
Addendum entered by Yolande Hernandez 11/13/23 16:20:
Received voicemail from Annamaria at [facility], will need their palliative care to conduct a face to face with patient before re-admitting to services. [facility] [phone], awaiting to hear when they can come out.
Original Note:
CM received consult for hospice. CM spoke with patients Latoya, reports patient was previous with [facility], would like to start care with services again. reports she cannot take care of patient alone and patient would like to come
home to pass. reports they have adult children but there is friction in the family and are not really a support. reports patient resides on the first floor, two steps to enter home, patient has a walker at home. Patient PCP Dr. Fuentes,
pharmacy [facility]. Patient seen bedside. Patient reports he wants to 'go home and '. Patient agreeable to referral to [facility]. CM will send referral in [facility]. CM will continue to follow for discharge planning needs.
Plan; referral sent to [facility].
--- NOTE | 2023-11-13 16:18 | W.PN.HOSP.TC ---
Today's Communication/Plan
-
Patient has been declining all medications
Bladder scan to rule out retention
Disposition efforts initiating home hospice upon discharge tentatively on 11/13.
Assessment / Plan
Assessment / Plan
IMPRESSION:
Failure to thrive, presentation with progressive weakness and lethargy
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
Acute kidney injury on CKD stage IV
Hyperkalemia
Conditions prior to admission:
Chronic anemia requiring transfusion
CKD stage IV baseline rectal carcinoma stage IIIb diagnosed 05/28
� Status post elective robotic sigmoidectomy 05/28
� Declined systemic therapy initially, then found to have liver metastatic disease, treated with FOLFOX and Vectibix 02/27.
History of gastrointestinal hemorrhage
Paroxysmal atrial fibrillation.
Not on anticoagulation given falls and colorectal carcinoma.
History of prostate carcinoma
History of extensive type a aortic dissection status postrepair 06/2010
Hypertension
Dyslipidemia
Former smoker
PLAN:
Failure to thrive likely multifactorial and due to advanced colorectal carcinoma with hepatic metastatic disease
Recent imaging with CT scan of the abdomen pelvis reviewed.
Also in addition patient with progressive chronic kidney disease presents with ANITHA and hyperkalemia
Toxic metabolic encephalopathy due to above
Recently offered hospice, although declined
Now with conversation with patient as well as patient's over the phone, given patient declining any further aggressive treatment including systemic treatment, surgery, and with progressive declining and multiple hospitalizations, hospice would
be only reasonable option for comfort and avoiding multiple rehospitalization's
Case management consultation/hospice consultation
Physical therapy assessment
ANITHA on CKD stage IV baseline hyperkalemia
Bladder scan to rule out obstructive component
IV fluids.
Hyperkalemia treated while in the emergency room
Will follow BMP
Cardiovascular:
Hypertension, dyslipidemia, paroxysmal atrial fibrillation.
Continue preadmission antihypertensive regimen including amlodipine, hydralazine, metoprolol
Chronic anemia likely due to colorectal carcinoma.
Recent admission with hemoglobin down to 6 requiring transfusion
Hemoglobin stable in the range 8�9
Monitor.
Continue PPI.
CODE STATUS DNR
DVT prophylaxis heparin
Anticipated Discharge: 24 - 48 hours
Subjective/Interval History
-
Date of Service: November 13, 2023
Objective Data
-
Labs:
Laboratory Results
11/13/23
07:40
WBC 13.5 H
Hgb 9.0 L
Hct 27.9 L
Plt Count 288
Sodium 132 L
Potassium 5.5 H
Chloride 98
Carbon Dioxide 17 L
BUN 59 H
Creatinine 4.3 H*
Glucose 66 L
Calcium 9.0
Vital Signs:
Vital Signs
Temp Pulse Resp BP Pulse Ox
98.9 F 85 14 142/68 96
11/13/23 11:00 11/13/23 11:00 11/13/23 11:00 11/13/23 11:00 11/13/23 11:00
I&O
11/12/23 11/13/23 11/14/23
06:59 06:59 06:59
Output Total 600 / 600
Balance -600 / -600
Physical Exam
-
General: Well Developed and No Apparent Distress
HEENT: Normocephalic, Atraumatic and Moist Mucous Membranes
Respiratory: Clear to Auscultation
Cardiac: Regular Rhythm and S1/S2; Negative Murmur, Rub or Gallop
GI: Soft, Nontender, Nondistended and Normal Bowel Sounds; Negative Organomegaly
Rectal: Deferred by Provider
Musculoskeletal: No Clubbing, No Cyanosis and No Edema
Skin: Negative Rash
Neuro: Nonfocal/Grossly Intact
[2023-11-13] MEDS: LOKELMA 10 GRAM PO (17:16)
[2023-11-13] MEDS: NSS IV (17:21)
[2023-11-14 03:20] VITALS: BP 151/73
[2023-11-14 07:56] VITALS: BP 144/74
[2023-11-14] MEDS: VITAMIN C 500 MG PO (08:14)
[2023-11-14] MEDS: TOPROL XL 50 MG PO (08:15)
[2023-11-14] MEDS: HEPARIN 5000 UNITS SC (08:15)
[2023-11-14] MEDS: NORVASC 2.5 MG PO (08:15)
[2023-11-14] MEDS: PROTONIX 40 MG PO (08:15)
[2023-11-14] MEDS: TYLENOL 1000 MG PO (08:15)
[2023-11-14] MEDS: THERAGRAN 1 TABLET PO (08:16)
[2023-11-14 09:32] LABS: Blood Urea Nitrogen 66 mg/dl (9-20); Calcium 8.7 mg/dl (8.4-10.2); Carbon Dioxide 14 mmol/L (22-30); Chloride 98 mmol/L (98-107); Estimated Creatinine Clearance 11 ml/min; Glucose 58 mg/dl (70-99); Sodium 131 mmol/L (135-145); eGFR 12.78
--- NOTE | 2023-11-14 09:58 | W.DS.TRANS ---
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
-
Discharge Instructions:
Discharge Diagnosis/Procedures IMPRESSION:
Failure to thrive, presentation with progressive
weakness and lethargy
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
Acute kidney injury on CKD stage IV
Hyperkalemia
Conditions prior to admission:
Chronic anemia requiring transfusion
CKD stage IV baseline rectal carcinoma stage
IIIb diagnosed 05/28
� Status post elective robotic sigmoidectomy
20
� Declined systemic therapy initially, then
found to have liver metastatic disease, treated
with FOLFOX and Vectibix 02/27.
History of gastrointestinal hemorrhage
Paroxysmal atrial fibrillation.
Not on anticoagulation given falls and
colorectal carcinoma.
History of prostate carcinoma
History of extensive type a aortic dissection
status postrepair 06/2010
Hypertension
Dyslipidemia
Former smoker
Diet Regular
Instructions:
Stand-Alone Forms:
Changes to Home Medications: Yes
Discharge Medications:
DC Medications w/original date entered in [employer]
acetaminophen 500 mg tablet 1,000 mg PO DAILY Pain 08/11/23
omeprazole 20 mg capsule,delayed release 20 mg PO DAILY Gastrointestinal Issue 08/11/23
metoprolol succinate 50 mg tablet,extended release 24 hr 50 mg PO DAILY Blood Pressure 11/12/23
therapeutic multivitamin 1 tab PO DAILY Supplement 11/12/23
Home Medication Changes
Home hospice discharge
Pending Results: No
--- NOTE | 2023-11-14 10:44 | CM ---
Addendum entered by Tracy Lujan 11/14/23 12:33:
Explained IMM to patient; form signed @ 1200
Original Note:
CM spoke with patient's via phone; discharge plan discussed
For [facility] insurance approval, CM explained to via phone that [facility] needs to complete a Palliative Care face to face evaluation in the patient's home before they can restart [facility] care.
reported that she is unable to provide transport to home via private car. If ambulance cost is not covered by her 's health insurance, is ok with the out of pocket cost of $350
Contacted [facility] @ #[phone]; they will contact patient's to schedule home evaluation and home equipment needs.
Plan: Discharge to home today via ambulance; pick-up scheduled at 1200
[2023-11-14 11:22] VITALS: BP 135/62
--- NOTE | 2023-11-14 12:16 | PN.CDI ---
CDI
- -
CDI:
Physician Documentation Request
Admit Date: 11/12/23 14:27
Dear Doctor Jesse,
Clinical Indicators:
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
Patient presented with weakness, fatigue and lethargy.
IVF NSS x 1 L given.
Sodium levels:
11/12/23 11/13/23
08:50 07:40
Sodium 130 L 132 L
Based on the above, could you clarify in the progress notes, the appropriate diagnosis, if significant, that supports the above abnormalities and additional evaluation, monitoring and/or treatment rendered:
Hyponatremia
Abnormal lab value, clinically insignificant
Other, please specify
Use of terms such as suspected, likely, concern for, or probable (associated with a specific diagnosis that is being evaluated, monitored, or treated as if it exists) are acceptable and can be coded in the inpatient setting, when documented at the
time of discharge.
Thank you,
MECCA Horner RN
CDI Specialist
available via tiger text
Please use your independent medical judgment in providing your response.
== END 2023-11-14 12:10 | disposition hospice, home (50) | DRG 374 ==
LOC: 4 WEST ACU 14:27
PROVIDERS: Physician Assistant; ADMITTING PHYSICIAN Internal Medicine; EMERGENCY PHYSICIAN Emergency Medicine; FAMILY PHYSICIAN Family Medicine
DX: C19 Malignant neoplasm of rectosigmoid junction (principal); G92.8 Other toxic encephalopathy; C78.7 Secondary malignant neoplasm of liver and intrahepatic bile duct; N17.9 Acute kidney failure, unspecified; N18.4 Chronic kidney disease, stage 4 (severe); E87.1 Hypo-osmolality and hyponatremia; R62.7 Adult failure to thrive; I12.9 Hypertensive chronic kidney disease with stage 1 through stage 4 chronic kidney disease, or unspecified chronic kidney disease; E87.5 Hyperkalemia; D63.8 Anemia in other chronic diseases classified elsewhere; E78.5 Hyperlipidemia, unspecified; I48.0 Paroxysmal atrial fibrillation; Z87.891 Personal history of nicotine dependence; Z85.46 Personal history of malignant neoplasm of prostate
CPT/HCPCS: 80048; 80053; 83690; 85025; 93005; 96361; 96374; 96375; 97163; 99284